=== PATIENT | male | born 1970 | race African-American/Black ===

== ENCOUNTER 2019-03-28 10:54 | Observation (INO) | payer OTHER ==
--- NOTE | 2019-03-28 11:09 | PDOC ---
History of Present Illness - General Chief Complaint: Chest Pain Stated Complaint: CHEST PAIN Time Seen by Provider: 03/28/19 11:08 - History of Present Illness Initial Comments: 03/28/19 11:47 The patient is a 48 year old male with a history of HTN, HLD, Pre-diabetes who presents for evaluation of chest pain. The patient reports onset of sharp left sided chest pain earlier this morning. He noted that the pain has become more dull and radiating sternally with associated shortness of breath prompting his presentation to the ED for further evaluation. He denies similar symptoms in the past and otherwise denies fevers, chills, cough, nausea, vomiting, abdominal pain, or changes with urination or bowel movements. He notes that his symptoms have somewhat improve on presentation to the ED. Past History - Past Medical History Allergies/Adverse Reactions: Allergies Allergy/AdvReac Type Severity Reaction Status Date / Time fish derived [Fish derived] Allergy Mild Verified 03/28/19 11:06 Home Medications: Ambulatory Orders Baclofen 10 mg PO BID 03/28/19 Cholecalciferol (Vitamin D3) [Vitamin D3] 5,000 unit PO WEEKLY 03/28/19 Enalapril Maleate [Vasotec] 20 mg PO DAILY 03/28/19 Meloxicam 15 mg PO BID 03/28/19 Metformin HCl [Glucophage] 500 mg PO BID 03/28/19 Methylprednisolone [Medrol Dose Tad] 1 tablet DAILY 03/28/19 Asthma: No Cardiac Disorders: No COPD: No Diabetes: No GI Disorders: No Disorders: No HTN: Yes Seizures: No - Surgical History Abdominal Surgery: No Appendectomy: Yes (1984 in [place]) Cardiac Surgery: No Cholecystectomy: No Lung Surgery: No Neurologic Surgery: No Orthopedic Surgery: Yes (Fx R hip R knee and R galvin sx at age 13 yrs) - Reproductive History Testicular Surgery: No - Suicide/Smoking/Psychosocial Hx Smoking History: Current every day smoker Have you smoked in the past 12 months: Yes Number of Cigarettes Smoked Daily: 10 Hx Alcohol Use: Yes Drug/Substance Use Hx: Yes Substance Use Type: Alcohol, Cocaine Hx Substance Use Treatment: Yes Review of Systems - Review of Systems Comments:: 03/28/19 11:51 Constitutional: No fevers, chills, fatigue, malaise HEENT: No Rhinorrhea, nasal congestion, visual changes Cardiovascular: Chest pain. No syncope, palpitations, lightheadedness Respiratory: SOB. No Cough, Hemoptysis, Gastrointestinal: No Abdominal pain, Nausea, Vomiting, Constipation, Diarrhea, Melena Genitourinary: No Dysuria, Frequency, Urgency, Hesitancy, Hematuria, Flank pain Musculoskeletal: No Myalgia, arthralgia Skin: No rashes, itching, bruising, pallor Neurologic: No Headache, Dizziness, Numbness, Weakness, or Tingling Psychiatric: No Hallucinations. No SI or HI *Physical Exam - Physical Exam Comments: 03/28/19 11:51 General Appearance: Nourished. No Apparent Distress HEENT: No Pharyngeal Erythema, Tonsillar Exudate, Tonsillar Erythema Neck: No Cervical Lymphadenopathy Respiratory/Chest: Lungs Clear, Normal Breath Sounds. Reproducible tenderness to palpation on exam along the left sternal boarder. No Crackles, Rales, Rhonchi, Wheezing Cardiovascular: Regular Rhythm, Regular Rate. No Murmur, Gallops, Rubs Gastrointestinal/Abdominal: Normal Bowel Sounds, Soft. No Guarding, Rebound, Tenderness Musculoskeletal: No CVA Tenderness Extremity: Normal Capillary Refill Integumentary: Normal Color, Dry, Warm Neurologic: Fully Oriented, Alert, Normal Mood/Affect, Normal Response, ED Treatment Course - LABORATORY CBC & Chemistry Diagram: 03/28/19 11:36 03/28/19 11:36 Medical Decision Making - Medical Decision Making 03/28/19 11:52 The patient is a 48 year old male with a history of HTN, HLD, Pre-diabetes who presents for evaluation of chest pain. Differential includes but is not limited to: ACS, Musculoskeletal, Infectious, Metabolic Derangement. Given the patient's history and physical exam, we will obtain a cbc, cmp, troponin, ekg, chest plain film to evaluate further. We will treat with tylenol and continue to monitor and reassess while here in the ED. 03/28/19 16:50 CBc, cmp, troponin are unremarkable. Chest plain film does not demonstrate any acute pathology. Given the patient's cardiac risk factors and lack of a prior cardiac work up, we believe he requires admission for further monitoring and management. We discussed the case with the admitting team who accepted the patient for admission. *DC/Admit/Observation/Transfer Diagnosis at time of Disposition: Chest pain Qualifiers: Chest pain type: unspecified Qualified Code(s): R07.9 - Chest pain, unspecified - Discharge Dispostion Condition at time of disposition: Improved Decision to Admit order: Yes - Referrals - Patient Instructions - Post Discharge Activity
[2019-03-28] MEDS ORDERED: ACETAMINOPHEN 1000 MG/100 ML VIAL (NON FORMULARY) IVPB ONE (11:32)
--- NOTE | 2019-03-28 11:38 | PDOC ---
Attending Attestation - Resident Resident Name: PrernaChun - ED Attending Attestation I have performed the following: I have examined & evaluated the patient, The case was reviewed & discussed with the resident, I agree w/resident's findings & plan, Exceptions are as noted Heart Score/ECG Review - ECG Impressions Comment:: EKG read 11:03- NSR 77 bpm, no acute ST/T changes. +LVH.
[2019-03-28 11:52] LABS: BASO % 0.9 % (0-2.0); EOS % 1.3 % (0-4.5); HEMATOCRIT 41.4 % (35.4-49); HEMOGLOBIN 13.9 GM/dL (11.7-16.9); LYMPH % 31.2 % (8-40); MCH 31.5 pg (25.7-33.7); MCHC 33.5 g/dl (32.0-35.9); MEAN PLT VOLUME 7.3 fl (7.5-11.1); MONO % 5.9 % (3.8-10.2); NEUT % 60.7 % (42.8-82.8); PLATELET COUNT 372 K/MM3 (134-434); RDW 14.3 % (11.9-15.9); WHITE BLOOD COUNT 12.8 K/mm3 (4.0-10.0)
[2019-03-28] MEDS ORDERED: ACETAMINOPHEN INJECTION 100 ML IVPB ONE (11:53)
[2019-03-28] MEDS ORDERED: SODIUM CHLORIDE 1,000 ML IV STA (12:14)
[2019-03-28 12:19] LABS: ALBUMIN 3.9 g/dl (3.4-5.0); BILIRUBIN,TOTAL 0.3 mg/dL (0.2-1); BLOOD UREA NITROGEN 10.7 mg/dL (7-18); CALCIUM 9.3 mg/dL (8.5-10.1); CREATININE 0.9 mg/dL (0.55-1.3); TOT PROT 7.7 g/dl (6.4-8.2)
[2019-03-28] MEDS ORDERED: ASPIRIN 81 MG CHEWABLE TABLETS PO ONE (13:53)
[2019-03-28] MEDS ORDERED: ASPIRIN 81 MG CHEWABLE TABLETS ONE (14:16)
[2019-03-28] MEDS ORDERED: NITROGLYCERIN SUBLINGUAL 1/150 0.4 MG TAB SL PRN (15:09)
--- NOTE | 2019-03-28 15:28 | HP ---
CHIEF COMPLAINT:chest pain PCP: Dr. Kennedy HISTORY OF PRESENT ILLNESS: 48 yo M PMH of HTN, HLD, Pre-diabetes presented to ED with chest pain. pt works at [employer] and had EKG there and was advised to come to ED here. Pt describes this chest pain as sharp L sided chest pain 9/10 in severity. pt states this chest pain lasted around 30-45 minutes. pt was working when pain started. pt states that when he was laying down for the EKG he felt the pain was worse. pt stated that the pain radiated to mid sternal region and felt more dull. Pt states he has felt similar chest pain in the past but it never persisted for more than a few minutes. Pt states that many years ago he had a stress test for similar chest pain but cant remember the results. pt also endorses lightheadedness. pt denies n/v/d, pt denies SOB. Pt currently has no acute complaints and states that his chest pain has resolved. ER course was notable for: (1)Aspirin (2)EKG: NSR. no ST changes (3) Recent Travel:denies PAST MEDICAL HISTORY: HLD, HTN, Pre-DM PAST SURGICAL HISTORY: Social History: Smokin pack year Alcohol:denies Drugs: denies Family History: Mother -DM, Father HTN, Sister - HTN and DM, Brother of intracranial aneurysm Allergies fish derived [Fish derived] Allergy (Mild, Verified 03/28/19 11:06) HOME MEDICATIONS: Home Medications Medication Instructions Recorded Quetiapine Fumarate [Seroquel -] 50 mg PO BID #60 tablet 09/21/11 Citalopram Hydrobromide [Celexa] 20 mg PO DAILY #0 tablet 10/07/11 Amlodipine Besylate [Norvasc -] 10 mg PO DAILY 03/28/19 Metformin HCl [Glucophage] 500 mg PO DAILY 03/28/19 REVIEW OF SYSTEMS CONSTITUTIONAL: Absent: fever, chills, diaphoresis, generalized weakness, malaise, loss of appetite, weight change HEENT: Absent: rhinorrhea, nasal congestion, throat pain, throat swelling, difficulty swallowing, mouth swelling, ear pain, eye pain, visual changes CARDIOVASCULAR: Present: Chest pain, lightheadedness Absent: syncope, palpitations, irregular heart rate, peripheral edema RESPIRATORY: Absent: cough, shortness of breath, dyspnea with exertion, orthopnea, wheezing, stridor, hemoptysis GASTROINTESTINAL: Absent: abdominal pain, abdominal distension, nausea, vomiting, diarrhea, constipation, melena, hematochezia GENITOURINARY: Absent: dysuria, frequency, urgency, hesitancy, hematuria, flank pain, genital pain MUSCULOSKELETAL: Absent: myalgia, arthralgia, joint swelling, back pain, neck pain SKIN: Absent: rash, itching, pallor HEMATOLOGIC/IMMUNOLOGIC: Absent: easy bleeding, easy bruising, lymphadenopathy, frequent infections ENDOCRINE: Absent: unexplained weight gain, unexplained weight loss, heat intolerance, cold intolerance PHYSICAL EXAMINATION Vital Signs - 24 hr 03/28/19 11:06 Temperature 97.7 F Pulse Rate 80 Respiratory 18 Rate Blood Pressure 131/84 O2 Sat by Pulse 98 Oximetry (%) GENERAL: Awake, alert, and fully oriented, in no acute distress. HEAD: Normal with no signs of trauma. LUNGS: Breath sounds equal, clear to auscultation bilaterally. No wheezes, and no crackles. No accessory muscle use. HEART: Regular rate and rhythm, normal S1 and S2 without murmur, rub or gallop. ABDOMEN: Soft, nontender, not distended, normoactive bowel sounds, no guarding, no rebound, no masses. MUSCULOSKELETAL: Normal range of motion at all joints. No bony deformities or tenderness. No CVA tenderness. UPPER EXTREMITIES: 2+ pulses, warm, well-perfused. No cyanosis. No clubbing. No peripheral edema. LOWER EXTREMITIES: 2+ pulses, warm, well-perfused. No calf tenderness. No peripheral edema. SKIN: Warm, dry, normal turgor, no rashes or lesions noted, normal capillary refill. Laboratory Results - last 24 hr 03/28/19 03/28/19 03/28/19 11:36 11:36 11:36 WBC 12.8 H RBC 4.40 Hgb 13.9 Hct 41.4 MCV 94.0 MCH 31.5 MCHC 33.5 RDW 14.3 Plt Count 372 MPV 7.3 L Absolute Neuts (auto) 7.7 Neutrophils % 60.7 Lymphocytes % 31.2 Monocytes % 5.9 Eosinophils % 1.3 Basophils % 0.9 Nucleated RBC % 0 Sodium 140 Potassium 4.0 Chloride 107 Carbon Dioxide 27 Anion Gap 6 L BUN 10.7 Creatinine 0.9 Est GFR (CKD-EPI)AfAm 115.02 Est GFR (CKD-EPI)NonAf 99.24 Random Glucose 78 Calcium 9.3 Total Bilirubin 0.3 AST 17 ALT 45 Alkaline Phosphatase 54 Creatine Kinase 299 Creatine Kinase Index 0.5 CK-MB (CK-2) 1.5 Troponin I < 0.02 Total Protein 7.7 Albumin 3.9 ASSESSMENT/PLAN: 48 yo M PMH HTN, HLD, Pre-diabetes presented to ED with sharp chest pain and lightheadness. Admitted to tele obs with plans for stress testing to r/o ACS Chest Pain -r/o ACS -EKG: NSR, no ST changes, will rpt EKG -Troponin I negative x1, will trend troponins -received Asa in ED, pt states CP resolved -pt should have echo stress in am to r/o ischemic events. pt to be NPO after midnight -Nitroglycerin prn HTN -well controlled -pt on enalopril 20 at home -c/w home meds Pre-Diabetes -will order A1C -BGM, ISS -pt taking Metformin 500 bid at home HLD -awaiting lipid panel DVT ppx: Lovenox Dispo: tele obs Visit type - Emergency Visit Emergency Visit: Yes ED Registration Date: 03/28/19 Care time: The patient presented to the Emergency Department on the above date and was hospitalized for further evaluation of their emergent condition. - New Patient This patient is new to me today: Yes Date on this admission: 03/28/19 - Critical Care Critical Care patient: No ATTENDING PHYSICIAN STATEMENT I saw and evaluated the patient. I reviewed the resident's note and discussed the case with the resident. I agree with the resident's findings and plan as documented. SUBJECTIVE: OBJECTIVE: ASSESSMENT AND PLAN:
--- NOTE | 2019-03-28 15:37 | CON.CARD ---
Consult Consult Specialty:: Cardiology Referred by:: Hospitalist Medicine Reason for Consultation:: Chest pain - History of Present Illness Chief Complaint: Chest pain History of Present Illness: CHIEF COMPLAINT:chest pain PCP: Dr. Kennedy HISTORY OF PRESENT ILLNESS: 48 yo M PMH of HTN, HLD, Pre-diabetes presented to ED with non-exertional sharp left-sided radiating to retrosternal chest pain worse supine and improved sitting up resolving after IV Tylenol w/o associated dyspnea, palpitations, near or true syncope, orthopnea, PND or LE edema, fevers , chills, rashes. Pt states he has felt similar chest pain in the past but it never persisted for more than a few minutes. Recent Travel:denies PAST MEDICAL HISTORY: HLD, HTN, Pre-DM PAST SURGICAL HISTORY: Social History: Smokin pack year Alcohol:denies Drugs: denies Family History: Mother -DM, Father HTN, Sister - HTN and DM, Brother of intracranial aneurysm Allergies fish derived [Fish derived] Allergy (Mild, Verified 03/28/19 11:06) - History Source History Provided By: Patient Limitations to Obtaining History: No Limitations - Past Medical History Cardio/Vascular: Yes: HTN Endocrine: Yes: Diabetes Mellitus - Alcohol/Substance Use Hx Alcohol Use: Yes - Smoking History Smoking history: Current every day smoker Have you smoked in the past 12 months: Yes Aproximately how many cigarettes per day: 10 Home Medications - Allergies Allergies/Adverse Reactions: Allergies Allergy/AdvReac Type Severity Reaction Status Date / Time fish derived [Fish derived] Allergy Mild Verified 03/28/19 11:06 - Home Medications Home Medications: Ambulatory Orders Baclofen 10 mg PO BID 03/28/19 Cholecalciferol (Vitamin D3) [Vitamin D3] 5,000 unit PO WEEKLY 03/28/19 Enalapril Maleate [Vasotec] 20 mg PO 03/28/19 Meloxicam 15 mg PO BID 03/28/19 Metformin HCl [Glucophage] 500 mg PO BID 03/28/19 Methylprednisolone [Medrol Dose Tad] 1 tablet DAILY 03/28/19 Review of Systems - Review of Systems Cardiovascular: reports: Chest Pain Vital Signs: Vital Signs Temperature 97.7 F 03/28/19 11:06 Pulse Rate 80 03/28/19 11:06 Respiratory Rate 18 03/28/19 11:06 Blood Pressure 131/84 03/28/19 11:06 O2 Sat by Pulse Oximetry (%) 98 03/28/19 11:06 Constitutional: Yes: No Distress, Calm Neck: Yes: Supple Respiratory: Yes: Regular, CTA Bilaterally Gastrointestinal: Yes: Normal Bowel Sounds, Soft Cardiovascular: Yes: Regular Rate and Rhythm JVD: No Carotid Bruit: No Heart Sounds: Yes: S1, S2 Edema: No - Other Data Labs, Other Data: CBC, BMP 03/28/19 11:36 03/28/19 11:36 Troponin, BNP 03/28/19 11:36 Troponin I < 0.02 Troponin, BNP 03/28/19 11:36 Troponin I < 0.02 NSR @ 88 LAE, min criteria LVH Imaging - Results Chest X-ray: Report Reviewed (NAD) Problem List - Problems (1) Atypical chest pain Code(s): R07.89 - OTHER CHEST PAIN (2) Hypertensive heart disease Code(s): I11.9 - HYPERTENSIVE HEART DISEASE WITHOUT HEART FAILURE Qualifiers: Heart failure presence: without heart failure Qualified Code(s): I11.9 - Hypertensive heart disease without heart failure Assessment/Plan 1. Atypical chest pain worse supine > sitting r/o pericarditis 2. HTN heart disease 3. Type 2 DM 4. Hyperlipidemia P:1. Ruling out for [place], check ESR, crp, CORNE[place] 2. Echo to assess effusion, ventricular and valve fxn, stress testing unlikely to add additional info given absence of exertional symptoms and clear positional change in sxs 2. Continue Vascotec 10 bid, f/u TSH, lipid panel, Ha1c, NSAIDs as needed 3. Thank you for consultative opportunity
--- NOTE | 2019-03-28 15:50 | PN ---
Teaching Attending Note Name of Resident: Cyndi Weiner ATTENDING PHYSICIAN STATEMENT I saw and evaluated the patient. I reviewed the resident's note and discussed the case with the resident. I agree with the resident's findings and plan as documented. SUBJECTIVE: CP resolved. No cough/sputum/fever/chills. OBJECTIVE: Afebrile, Hemodynamically Stable. Last Vital Signs Temp Pulse Resp BP Pulse Ox 97.7 F 80 18 131/84 98 03/28/19 11:06 03/28/19 11:06 03/28/19 11:06 03/28/19 11:06 03/28/19 11:06 HEENT - Atraumatic, Normocephalic. Heart - S1, S2, RRR Lungs - Clear to auscultation Abdomen - Soft, non-tender. Bowel Sounds normal Extremities - No calf tenderness. No edema. Neuro - AAO x 3. Tone/Power normal all 4 extremities. Laboratory Results - last 24 hr 03/28/19 03/28/19 03/28/19 11:36 11:36 11:36 WBC 12.8 H RBC 4.40 Hgb 13.9 Hct 41.4 MCV 94.0 MCH 31.5 MCHC 33.5 RDW 14.3 Plt Count 372 MPV 7.3 L Absolute Neuts (auto) 7.7 Neutrophils % 60.7 Lymphocytes % 31.2 Monocytes % 5.9 Eosinophils % 1.3 Basophils % 0.9 Nucleated RBC % 0 Sodium 140 Potassium 4.0 Chloride 107 Carbon Dioxide 27 Anion Gap 6 L BUN 10.7 Creatinine 0.9 Est GFR (CKD-EPI)AfAm 115.02 Est GFR (CKD-EPI)NonAf 99.24 Random Glucose 78 Calcium 9.3 Total Bilirubin 0.3 AST 17 ALT 45 Alkaline Phosphatase 54 Creatine Kinase 299 Creatine Kinase Index 0.5 CK-MB (CK-2) 1.5 Troponin I < 0.02 Total Protein 7.7 Albumin 3.9 Current Medications Generic Name Dose Route Start Last Admin Trade Name Freq PRN Reason Stop Dose Admin Aspirin 81 mg 03/29/19 10:00 Asa - PO DAILY [facility] Enoxaparin Sodium 40 mg 03/29/19 10:00 Lovenox - SQ DAILY [facility] Insulin Aspart 0 vial 03/28/19 15:00 Novolog Vial Sliding Scale - SQ Q6H [facility] Protocol Nitroglycerin 0.4 mg 03/28/19 15:09 Nitrostat - SL Q5M PRN FOR CHEST PAIN Home Medications Medication Instructions Recorded Baclofen 10 mg PO BID 03/28/19 Cholecalciferol (Vitamin D3) 5,000 unit PO WEEKLY 03/28/19 [Vitamin D3] Enalapril Maleate [Vasotec] 20 mg PO DAILY 03/28/19 Meloxicam 15 mg PO BID 03/28/19 Metformin HCl [Glucophage] 500 mg PO BID 03/28/19 Methylprednisolone [Medrol Dose 1 tablet DAILY 03/28/19 Tad] ASSESSMENT AND PLAN: 48 year old male with HTN, HLD, "Pre"DM 2 presented to ED with chest pain, 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 Started as sharp on left side and progressed to dull pain, lasting 30-45 minutes with associated lightheadedness, worse on laying flat. No nausea/vomiting/diaphoresis/ palpitations. He reports prior episodes of CP of shorter durations, not related to food intake or activity. 1. Atypical Chest Pain ECG - SR, Rate 77, LVH Troponin neg Admit to Tele, Serial troponin measurements. Echo and Stress Test requested. Received ASA loading in ED, will continue. Nitroglycerin PRN 2. Pre-DM2 versus DM 2 - On metformin at home. Will hold in favor of Novolog sliding scale. A1C requested. 3. HTN - Continue Enalapril 4. HLD - reported but not on meds. Lipid profile in AM. 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 This likely explains his mild leukocytosis. No signs of infection. DVT Px - Lovenox SQ
--- NOTE | 2019-03-28 17:23 | EKG ---
Test Reason : Blood Pressure : / mmHG Vent. Rate : 068 BPM Atrial Rate : 068 BPM P-R Int : 170 ms QRS Dur : 100 ms QT Int : 390 ms P-R-T Axes : -03 026 -01 degrees QTc Int : 414 ms NORMAL SINUS RHYTHM LEFT VENTRICULAR HYPERTROPHY NONSPECIFIC T WAVE ABNORMALITY ABNORMAL ECG WHEN COMPARED WITH ECG OF 28-MAR-2019 10:51, NO SIGNIFICANT CHANGE WAS FOUND Confirmed by JIMMY BOUDREAUX MD ([id number]) on 03/28/2019 5:22:31 PM Referred By: SERAFIN HAWKINS Confirmed By:JIMMY BOUDREAUX MD
--- NOTE | 2019-03-28 17:26 | EKG ---
Test Reason : Blood Pressure : / mmHG Vent. Rate : 077 BPM Atrial Rate : 077 BPM P-R Int : 166 ms QRS Dur : 092 ms QT Int : 374 ms P-R-T Axes : 041 030 021 degrees QTc Int : 423 ms POOR DATA QUALITY, INTERPRETATION MAY BE ADVERSELY AFFECTED NORMAL SINUS RHYTHM POSSIBLE LEFT ATRIAL ENLARGEMENT LEFT VENTRICULAR HYPERTROPHY ABNORMAL ECG NO PREVIOUS ECGS AVAILABLE Confirmed by JIMMY BOUDREAUX MD ([id number]) on 03/28/2019 5:26:11 PM Referred By: Confirmed By:JIMMY BOUDREAUX MD
[2019-03-28] MEDS: INSULIN SLIDING SCALE (NOVOLOG) 1 VIAL SQ SCH ×2 (17:55→23:20)
[2019-03-28 19:54] VITALS: BMI 30.2
[2019-03-29] MEDS: INSULIN SLIDING SCALE (NOVOLOG) 1 VIAL SQ SCH ×2 (06:24→12:25)
[2019-03-29 06:59] LABS: HEMOGLOBIN 12.7 GM/dL (11.7-16.9); MCH 32.2 pg (25.7-33.7); MCHC 34.3 g/dl (32.0-35.9); MEAN PLT VOLUME 7.5 fl (7.5-11.1); PLATELET COUNT 356 K/MM3 (134-434); RBC 3.93 M/mm3 (4.00-5.60); RDW 13.9 % (11.9-15.9); WHITE BLOOD COUNT 10.5 K/mm3 (4.0-10.0)
[2019-03-29 07:13] LABS: BLOOD UREA NITROGEN 12.8 mg/dL (7-18); CALCIUM 8.6 mg/dL (8.5-10.1); CREATININE 0.9 mg/dL (0.55-1.3); MAGNESIUM 2.3 mg/dL (1.8-2.4); POTASSIUM 4.3 mmol/L (3.5-5.1)
[2019-03-29 08:16] LABS: CHOLESTEROL 175 mg/dL (50-200); HDL CHOLESTEROL 39 mg/dL (40-60); TRIGLYCERIDES 110 mg/dL (0-150)
[2019-03-29] MEDS ORDERED: ASPIRIN 81 MG CHEWABLE TABLETS PO SCH (10:00)
[2019-03-29] MEDS ORDERED: ENALAPRIL MALEATE 10 MG TABLET (FP) PO SCH (10:00)
[2019-03-29] MEDS ORDERED: ENOXAPARIN NA (PORCINE) 40 MG/0.4 ML DISP.SYRIN SQ SCH (10:00)
--- NOTE | 2019-03-29 10:43 | PN ---
Progress Note, Physician Chief Complaint: Events noted Not in distress History of Present Illness: Patient was seen and examined. Awake and alert. Chart was reviewed Denies chest pain, SOB or palpitation - Current Medication List Current Medications: Active Medications Aspirin (Asa -) 81 mg PO DAILY [facility] Enalapril Maleate (Vasotec -) 20 mg PO DAILY [facility] Enoxaparin Sodium (Lovenox -) 40 mg SQ DAILY [facility] Insulin Aspart (Novolog Vial Sliding Scale -) 1 vial SQ Q6HPO [facility]; Protocol Last Admin: 03/29/19 06:24 Dose: Not Given Nitroglycerin (Nitrostat -) 0.4 mg SL Q5M PRN PRN Reason: FOR CHEST PAIN - Objective Vital Signs: Vital Signs Temperature 97.6 F 03/29/19 02:36 Pulse Rate 77 03/29/19 02:36 Respiratory Rate 18 03/29/19 02:36 Blood Pressure 139/87 03/29/19 02:36 O2 Sat by Pulse Oximetry (%) 98 03/28/19 23:02 Eyes: Yes: PERRL HENT: Yes: Atraumatic Neck: Yes: Supple Cardiovascular: Yes: Regular Rate and Rhythm, S1, S2 Respiratory: Yes: CTA Bilaterally Gastrointestinal: Yes: Normal Bowel Sounds, Soft. No: Tenderness Edema: No Additional Findings/Remarks: - Review of Systems Constitutional: denies: Chills, Fever Cardiovascular: (+) Chest Pain, denies: Palpitations, Shortness of Breath Respiratory: denies: Cough, Hemoptysis, Orthopnea, PND Gastrointestinal: denies: Abdominal Pain, Constipation, Diarrhea, Melena, Nausea , Rectal Bleeding, Vomiting Musculoskeletal: denies: Back Pain, Joint Pain Neurological: denies: Dizziness, Headache, Seizure, Syncope Labs: CBC, BMP 03/29/19 05:04 03/29/19 05:04 Problem List - Problems (1) Atypical chest pain Code(s): R07.89 - OTHER CHEST PAIN (2) Hypertensive heart disease Code(s): I11.9 - HYPERTENSIVE HEART DISEASE WITHOUT HEART FAILURE Qualifiers: Heart failure presence: without heart failure Qualified Code(s): I11.9 - Hypertensive heart disease without heart failure Assessment/Plan 1. Atypical chest pain - rule out pericarditis 2. HTN 3. Type 2 DM 4. Hyperlipidemia PLAN: 1. Check ESR, CRP, TFT 2. Echocardiography to assess LV/RV and valvular function. Further recommendation to follow. 3. Continue Vascotec 10 mg BID 4. ASA 81 mg QD David Rae MD
--- NOTE | 2019-03-29 10:56 | ECHO ---
Version: 1 Name: ISADORA LAYNE Exam: Adult Echocardiogram Study Date: 03/29/2019, 8:14 AM Age: 48 Years MMode/2D Measurements & Calculations IVSd: 1.12 cm LVIDs: 3.2 cm LVIDd: 4.0 cm LVPWd: 1.57 cm ACS: 2.11 cm LVOT diam: 1.98 cm Doppler Measurements & Calculations MV E max bernard: 65.2 cm/sec Med E/e': 7.1 MV A max bernard: 66.6 cm/sec Med Peak E' Bernard: 9.2 cm/sec MV E/A: 0.98 Lat E/e': 8.7 Lat Peak E' Bernard: 7.5 cm/sec Ao max P.6 mmHg FLO(I,D): 1.79 cm Ao mean P.8 mmHg LV V1 mean: 55.2 cm/sec Ao V2 max: 137.7 cm/sec LV V1 mean P.37 mmHg TR max bernard: 241.6 cm/sec TR max P.4 mmHg Procedure A complete two-dimensional transthoracic echocardiogram was performed (2D, M-mode, Doppler and color flow Doppler). Left Ventricle The left ventricle is normal in size. There is mild asymmetric left ventricular hypertrophy. Ejectio n Fraction = 65%. The transmitral spectral Doppler flow pattern is suggestive of impaired LV relaxatio n. The left ventricular wall motion is normal. Atria Normal left and right atrial size and function. Mitral Valve The mitral valve is grossly normal. There is trace mitral regurgitation. Tricuspid Valve The tricuspid valve is normal in structure and function. There is trace tricuspid regurgitation. Rig ht ventricular systolic pressure is 34 mmhg. Aortic Valve The aortic valve is normal in structure and function. Pulmonic Valve The pulmonic valve is not well seen, but is grossly normal. Great Vessels The aortic root is normal size. Pericardium/Pleura There is no pericardial effusion. There is no pleural effusion. Summary Statements The left ventricle is normal in size. There is mild asymmetric left ventricular hypertrophy. Ejection Fraction = 65%. There is trace mitral regurgitation. There is trace tricuspid regurgitation. Right ventricular systolic pressure is 34 mmhg. MD Jerel Castro 03/29/2019, 9:55 AM Ordering Physician: Дмитрий Munoz Performed By: Mariella Crawford
--- NOTE | 2019-03-29 11:59 | PN ---
Teaching Attending Note Name of Resident: Cyndi Weiner ATTENDING PHYSICIAN STATEMENT I saw and evaluated the patient. I reviewed the resident's note and discussed the case with the resident. I agree with the resident's findings and plan as documented. SUBJECTIVE:asymptomatic. pain has completely resolved. had similar pain in the past and had stress test done 10 years ago which he reports as normal. 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 Started as sharp on left side and progressed to dull pain, lasting 30-45 minutes with associated lightheadedness, worse on laying flat. No nausea/vomiting/diaphoresis/palpitations. He reports prior episodes of CP of shorter durations, not related to food intake or activity. 1. Atypical Chest Pain- trop neg x2. CP now resolved. no events noted on soup person. Echo done awaiting results. can hold off on stress at this time. EKG now showing anything suggestive of pericarditis or ST changes. seen by cardio. on asa. 2. DM- a1c pending. dose take metformin at home. can re-start on discharge pending results of A1c 3. HTN- controlled. cont current medications 4. Dyslipidemia- LDL above goal. will need to start statin therapy. low cholesterol diet 5. DJD of spine- was on medrol dose pack. can f/u wtih PMD for further management 6. d/c home later today pending result of echo
[2019-03-29 14:46] VITALS: BP 160/80; PULSE 70; TEMP 98
[2019-03-29] MEDS ORDERED: ATORVASTATIN CA 40 MG TABLET (FP) PO SCH (22:00)
--- NOTE | 2019-03-30 07:56 | DS ---
Physical Exam: SUBJECTIVE: Patient seen and examined yesterday at bedside as pt was discharged yesterday. pt had no acute complaints. pt denied cp or sob. OBJECTIVE: Vital Signs Period Temp Pulse Resp BP Sys/Mistry Pulse Ox Last 24 Hr 98 F 70 18 160/80 PHYSICAL EXAM GENERAL: The patient is awake, alert, and fully oriented, in no acute distress. LUNGS: Breath sounds equal, clear to auscultation bilaterally, no wheezes, no crackles, no accessory muscle use. HEART: Regular rate and rhythm, S1, S2 without murmur, rub or gallop. ABDOMEN: Soft, nontender, nondistended, normoactive bowel sounds EXTREMITIES: 2+ pulses, warm, well-perfused, no edema. SKIN: Warm, dry, normal turgor, no rashes or lesions noted. LABS CBC, BMP 03/29/19 05:04 03/29/19 05:04 Laboratory Results - last 24 hr 03/29/19 03/29/19 03/29/19 02:00 05:04 12:22 POC Glucometer 107 Hemoglobin A1c % 7.0 H Triglycerides 110 Cholesterol 175 Total LDL Cholesterol 124 H HDL Cholesterol 39 L HOSPITAL COURSE: Date of Admission:03/28/19 48 yo M PMH HTN, HLD, Pre-diabetes presented to ED with sharp chest pain and lightheadness. Admitted to tele obs with plans for stress testing to r/o ACS. In the ED, the EKG showed NSR, no ST changes. The serial troponins were negative. the pt recieved asa and states the chest pain resolved. the pt states that the pain lasted 30-45 min. pt has had similar cp in the past but with shorter duration. the pt had echo testing during hospital course showing EF 65% and trace mitral and tricuspid regurgitation. Throughout the hospital course, pt had no acute events on tele monitor. Lab results show dyslipidepia. pt initiated on statins and counseled on diet and exercise. the pt should f/u with pcp to check liver enzymes in 6 weeks and repeat lipid panel. pt A1c is 7%. pt should c/w home metformin and f/u with pcp. HTN was well controlled. pt should c /w home medication and f/u outpt. Date of Discharge: 03/30/19 Minutes to complete discharge: 36 Discharge Summary Reason For Visit: CHEST PAIN Condition: Improved - Instructions Diet, Activity, Other Instructions: You came into the hospital with pain in your chest and lightheadedness. You were treated with medications to help your chest pain. Your blood work shows that you have high cholesterol. You had an Echo of your heart which shows normal heart function. There is some dysfunction with your heart valves. You should continue to follow up with your branch specialist as an outpatient. Medications: -Please continue taking Enalapril 20 mg daily -Please continue taking Aspirin 81 daily -Please take Atorvastatin 40 mg daily Please continue your home medications as prescribed. Please be careful while taking Meloxicam and Aspirin. This increases your risk of bleeding. If you experience excessive bleeding or injuries, please return to the ER. Please follow up with your branch specialist, Dr. Rae, to manage your heart condition. Please follow up with your primary care physician, Dr. Kennedy, to manage your health and monitor your improvement and monitor your blood work for your cholesterol. Your physician will need to check your liver enzymes in 6 weeks. Please continue to follow a low sodium/ low fat diet. You should continue to diet along with exercise. Please stop smoking as this may lead to many health problems including but not limited to your heart and lungs. Please return to the ER if you have any signs or symptoms of chest pain, shortness of breath, uncontrollable fever, chills, nausea, vomiting, numbness, tingling, or weakness in any part of your body, changes in vision, or slurred speech. Please return to the ER if symptoms persist, worsen, or new symptoms arise. Referrals: Diego Kennedy MD [Primary Care Provider] - David Rae MD [Staff Physician] - Disposition: HOME - Home Medications Comprehensive Discharge Medication List: Ambulatory Orders Baclofen 10 mg PO BID 03/28/19 Cholecalciferol (Vitamin D3) [Vitamin D3] 5,000 unit PO WEEKLY 03/28/19 Enalapril Maleate [Vasotec] 20 mg PO DAILY 03/28/19 Meloxicam 15 mg PO BID 03/28/19 Metformin HCl [Glucophage] 500 mg PO BID 03/28/19 Aspirin [ASA -] 81 mg PO DAILY #30 tab.chew 03/29/19 Atorvastatin Ca [Lipitor] 40 mg PO HS #30 tablet 03/29/19 This patient is new to me today: No Emergency Visit: No Critical Care patient: No - Discharge Referral Referred to [facility] Med [facility] Yes Physician Referral: Diego Conway MD ([facility]) ATTENDING PHYSICIAN STATEMENT I saw and evaluated the patient. I reviewed the resident's note and discussed the case with the resident. I agree with the resident's findings and plan as documented. SUBJECTIVE: OBJECTIVE: ASSESSMENT AND PLAN:
== END 2019-03-29 14:48 | disposition home or self-care (01) ==
LOC: JER 10:54 → JERBED 14:09 → J4W 19:35
PROVIDERS: ATTEND Internal Medicine
PROC: 3E033NZ Introduction of Analgesics, Hypnotics, Sedatives into Peripheral Vein, Percutaneous Approach (ICD-10-PCS; principal; 2019-03-28)
PROC: 3E0337Z Introduction of Electrolytic and Water Balance Substance into Peripheral Vein, Percutaneous Approach (ICD-10-PCS; 2019-03-28)
DX: R07.89 Other chest pain (principal); I11.9 Hypertensive heart disease without heart failure; E78.5 Hyperlipidemia, unspecified; R73.03 Prediabetes; F17.210 Nicotine dependence, cigarettes, uncomplicated; Z91.013 Allergy to seafood; Z79.84 Long term (current) use of oral hypoglycemic drugs
CPT/HCPCS: 36415; 71045-TC-FY; 80048; 80053; 80061; 82550; 82553; 82962; 83036; 83721; 83735; 84100; 84484; 85025; 85027; 93005; 93010; 93306-TC; 99285-25; G0378; J0131; J7030

== ENCOUNTER 2019-05-26 06:21 | Inpatient (IN) | payer OTHER ==
[2019-05-24 10:52] VITALS: BMI 28.2
[2019-05-26] MEDS ORDERED: CEFAZOLIN 2 GM in DEXTROSE 5%-WATER - 100 ML IVPB ONE (07:06)
[2019-05-26] MEDS ORDERED: ROCURONIUM BROMIDE 50 MG/5 ML SYRINGE ONE ×3 (07:08→11:38)
[2019-05-26] MEDS ORDERED: LIDOCAINE HCL/PF 2% SDV 5ML VIAL ONE (07:08)
[2019-05-26] MEDS ORDERED: MIDAZOLAM HCL 2 MG/2 ML SINGLE DOSE VIAL ONE (07:08)
[2019-05-26] MEDS ORDERED: PROPOFOL 20 ML ONE ×2 (07:08→10:52)
[2019-05-26] MEDS ORDERED: fentaNYL CITRATE 250 MCG/5 ML VIAL ONE (07:08)
[2019-05-26] MEDS ORDERED: GENTAMICIN SO4 80 MG/2 ML VIAL ONE (07:16)
[2019-05-26] MEDS ORDERED: LIDOCAINE 1%-EPI 1:100,000 30 ML MDV IJ ONE ×3 (07:16→11:16)
[2019-05-26 07:18] LABS: EOS % 1.7 % (0-4.5); HEMATOCRIT 39.7 % (35.4-49); HEMOGLOBIN 13.6 GM/dL (11.7-16.9); LYMPH % 37.4 % (8-40); MCHC 34.3 g/dl (32.0-35.9); MEAN CELL VOLUME 93.3 fl (80-96); MEAN PLT VOLUME 7.6 fl (7.5-11.1); MONO % 5.8 % (3.8-10.2); NEUT % 54.1 % (42.8-82.8); PLATELET COUNT 357 K/MM3 (134-434); RBC 4.26 M/mm3 (4.00-5.60); RDW 14.6 % (11.9-15.9); WHITE BLOOD COUNT 13.8 K/mm3 (4.0-10.0)
[2019-05-26] MEDS ORDERED: BUPIVACAINE HCL/PF 0.5% (5 MG/ML) 30 ML VIAL IJ ONE ×3 (07:18→11:57)
[2019-05-26] MEDS ORDERED: THROMBIN (BOVINE) 5,000 UNIT VIAL TP ONE ×4 (07:18→10:58)
[2019-05-26] MEDS ORDERED: ceFAZolin SODIUM 1 GM VIAL ONE ×2 (07:23→17:53)
[2019-05-26] MEDS ORDERED: VANCOMYCIN 1,000 MG VIAL (RESTRICTED TO ID ONLY) ONE (08:03)
[2019-05-26] MEDS ORDERED: VANCOMYCIN 1,000 MG VIAL (RESTRICTED TO ID ONLY) IVPB ONE (08:05)
[2019-05-26] MEDS ORDERED: ceFAZolin SODIUM 1 GM VIAL IVPB ONE (08:40)
[2019-05-26] MEDS ORDERED: LIDOCAINE 1%/EPI 1:100000 (20 ML MULTI DOSE VIAL) IJ ONE ×2 (08:51)
[2019-05-26] MEDS ORDERED: THROMBIN (BOVINE) 20,000 UNIT VIAL TP ONE (08:56)
[2019-05-26] MEDS ORDERED: BACITRACIN 50,000 UNITS VIAL NR ONE (09:05)
[2019-05-26] MEDS ORDERED: GENTAMICIN SO4 80 MG/2 ML VIAL IVPB ONE (09:05)
[2019-05-26] MEDS ORDERED: BACITRACIN 15 GM TUBE TOPICAL OINTMENT ONE (09:21)
[2019-05-26] MEDS ORDERED: EPHEDRINE SULFATE/0.9% NACL/PF 50 MG/10 ML SYRINGE NR ONE (09:25)
[2019-05-26] MEDS ORDERED: GLYCOPYRROLATE 0.2 MG/1 ML VIAL ONE ×2 (09:35→12:21)
[2019-05-26] MEDS ORDERED: BUPIVACAINE LIPOSOME/PF (EXPAREL) 266 MG/20 ML VIAL ONE (11:50)
[2019-05-26] MEDS ORDERED: BUPIVACAINE LIPOSOME/PF (EXPAREL) 266 MG/20 ML VIAL NR ONE (11:56)
[2019-05-26] MEDS ORDERED: NEOSTIGMINE METHYLSULFATE 0.5 MG/1 ML - 10 ML MDV ONE (12:21)
--- NOTE | 2019-05-26 13:04 | HP ---
History & Physical Update - History History: No Change - Physical Physical: No Change - Assessment Assessment: No Change - Plan Plan: No Change
--- NOTE | 2019-05-26 13:07 | OP ---
Operative Note - Note: Operative Date: 05/26/19 Pre-Operative Diagnosis: Cervical spodylosis with UE radiculopathy Operation: C4/5 Corpectomies; [employer]; Reconstruction w/ Peek Cage & Anterior plating. C3-C6 Laminectomies, [employer] of [employer] w/ Lateral Mass Instrumentation Post-Operative Diagnosis: Same as Pre-op Surgeon: Sky Gay [employer] Hand: Lupillo Dewey Anesthesiologist/BLASTING CLAY MINER: Max Vasques Anesthesia: General Estimated Blood Loss (mls): 40 Drains & Tubes with Location: Anterior UDAY & Posterior UDAY Drains, Volume Out (mls): 400 (Montero) Fluid Volume Replaced (mls): 2,000 Operative Report Dictated: Yes
[2019-05-26] MEDS ORDERED: ONDANSETRON 4 MG/2 ML VIAL IVPUSH PRN ×2 (13:08→13:58)
[2019-05-26] MEDS ORDERED: morphine CARPU-JECT 4 MG/1 ML DISP.SYRIN IVPUSH PRN (13:08)
[2019-05-26] MEDS ORDERED: diphenhydrAMINE HCL 25 MG CAPSULE (FP) PO PRN (13:08)
[2019-05-26] MEDS ORDERED: oxyCODONE HCL 5 MG TABLET PO PRN ×2 (13:08)
[2019-05-26] MEDS ORDERED: LACTATED RINGERS SOLUTION 1,000 ML/1,000 ML INFUS.BAG IV SCH (13:15)
[2019-05-26] MEDS ORDERED: ACETAMINOPHEN 1000 MG/100 ML VIAL (NON FORMULARY) IVPB ONE (13:59)
[2019-05-26] MEDS: LACTATED RINGERS SOLUTION 1,000 ML IV SCH (14:25)
[2019-05-26] MEDS: HYDROmorphone *PCA* 10MG/50ML DISP.SYRIN PCA SCH (14:25)
[2019-05-26] MEDS ORDERED: HYDROmorphone *PCA* 10MG/50ML DISP.SYRIN ONE (15:11)
[2019-05-26] MEDS ORDERED: ACETAMINOPHEN INJECTION 100 ML IVPB ONE (16:33)
[2019-05-26] MEDS: DOCUSATE SODIUM 100 MG CAPSULE (FP) PO SCH ×2 (17:50→22:28)
[2019-05-26] MEDS ORDERED: DEXTROSE 5%-WATER - 50 ML IVPB ONE (17:53)
[2019-05-26] MEDS: CEFAZOLIN 1 GM in DEXTROSE 5%-WATER - 50 ML IVPB SCH (17:56)
[2019-05-26] MEDS ORDERED: CEFAZOLIN 1 GM/D5W 1 GM/50 ML BAG IVPB SCH (18:00)
--- NOTE | 2019-05-26 22:52 | HP ---
CHIEF COMPLAINT: back pain PCP: Dr. Kennedy HISTORY OF PRESENT ILLNESS: Patient is a 48 year old male with past medical history of HTN, HLD and pre- diabetes, presented due to persistent pain and weakness of lower back, as well as dorsal surface of RUE for about 3 months that occurred suddenly after a fall. Recently, patient has also been reporting difficulty with ambulation and imbalance. An MRI of the cervical, thoracic and lumbar done which demonstrated degenerative kyphosis and spondylosis. Patient was referred to neurosurgery for cervical spondylosis and UE radiculopathy, and opted for surgery. Today, patient underwent C4/5 Corpectomies; Holiness of Lordosis; Reconstruction w/ Peek Cage & Anterior plating. C3-C6 Laminectomies, [employer] of [employer]osis w/ Lateral Mass Instrumentation. Post-operatively, patient reports sore throat, but otherwise denies headache, dizziness, chest pain, SOB, abdominal pain, diarrhea. Denies any numbness or weakness of the extremities. Recent Travel:denies PAST MEDICAL HISTORY: HTN HLD pre-DM PAST SURGICAL HISTORY: Right hip and knee surgery Social History: Smokin ppd >20y Alcohol: Drugs: Family history: Mother -DM Father HTN Sister - HTN and DM Brother of intracranial aneurysm Allergies fish derived [Fish derived] Allergy (Mild, Verified 05/26/19 07:19) No Known Drug Allergies Allergy (Verified 05/26/19 07:19) HOME MEDICATIONS: Home Medications Medication Instructions Recorded Baclofen 10 mg PO PRN 03/28/19 Cholecalciferol (Vitamin D3) 5,000 unit PO WEEKLY 03/28/19 [Vitamin D3] Metformin HCl [Glucophage] 500 mg PO BID 03/28/19 Amlodipine Besylate [Norvasc -] 10 mg PO DAILY 05/24/19 REVIEW OF SYSTEMS CONSTITUTIONAL: Absent: fever, chills, diaphoresis, generalized weakness, malaise, loss of appetite, weight change HEENT: Absent: rhinorrhea, nasal congestion, throat pain, throat swelling, difficulty swallowing, mouth swelling, ear pain, eye pain, visual changes CARDIOVASCULAR: Absent: chest pain, syncope, palpitations, irregular heart rate, lightheadedness , peripheral edema RESPIRATORY: Absent: cough, shortness of breath, dyspnea with exertion, orthopnea, wheezing, stridor, hemoptysis GASTROINTESTINAL: Absent: abdominal pain, abdominal distension, nausea, vomiting, diarrhea, constipation, melena, hematochezia GENITOURINARY: Absent: dysuria, frequency, urgency, hesitancy, hematuria, flank pain, genital pain MUSCULOSKELETAL: Absent: myalgia, arthralgia, joint swelling, back pain, neck pain SKIN: Absent: rash, itching, pallor HEMATOLOGIC/IMMUNOLOGIC: Absent: easy bleeding, easy bruising, lymphadenopathy, frequent infections ENDOCRINE: Absent: unexplained weight gain, unexplained weight loss, heat intolerance, cold intolerance NEUROLOGIC: Absent: headache, focal weakness or paresthesias, dizziness, unsteady gait, seizure, mental status changes, bladder or bowel incontinence PSYCHIATRIC: Absent: anxiety, depression, suicidal or homicidal ideation, hallucinations. PHYSICAL EXAMINATION Vital Signs - 24 hr 05/26/19 05/26/19 05/26/19 07:10 07:14 07:15 Temperature 97.9 F 97.9 F Pulse Rate 80 80 Respiratory 20 20 Rate Blood Pressure 150/92 150/92 O2 Sat by Pulse 100 Oximetry (%) 05/26/19 05/26/19 05/26/19 13:09 13:15 13:30 Temperature 98.6 F Pulse Rate 94 H 89 90 Respiratory 20 17 15 Rate Blood Pressure 147/83 143/94 156/100 O2 Sat by Pulse 100 97 100 Oximetry (%) 05/26/19 05/26/19 05/26/19 13:45 14:00 14:15 Temperature Pulse Rate 89 100 H 91 H Respiratory 15 14 17 Rate Blood Pressure 152/94 153/93 146/89 O2 Sat by Pulse 100 100 100 Oximetry (%) 05/26/19 05/26/19 05/26/19 14:25 14:30 14:45 Temperature Pulse Rate 91 H 92 H 96 H Respiratory 17 17 18 Rate Blood Pressure 146/89 157/91 158/86 O2 Sat by Pulse 100 100 100 Oximetry (%) 05/26/19 05/26/19 05/26/19 15:00 15:15 15:45 Temperature Pulse Rate 96 H 96 H 90 Respiratory 16 13 13 Rate Blood Pressure 149/82 151/88 138/84 O2 Sat by Pulse 100 100 99 Oximetry (%) 05/26/19 05/26/19 05/26/19 16:00 16:15 16:30 Temperature 97.7 F Pulse Rate 83 93 H 93 H Respiratory 13 14 13 Rate Blood Pressure 133/95 144/85 152/97 O2 Sat by Pulse 99 100 100 Oximetry (%) 05/26/19 05/26/19 05/26/19 16:55 17:08 17:18 Temperature 98 F 98 F Pulse Rate 94 H 94 H 94 H Respiratory 18 20 20 Rate Blood Pressure 126/83 126/83 126/83 O2 Sat by Pulse 100 100 Oximetry (%) 05/26/19 17:55 Temperature Pulse Rate 88 Respiratory 18 Rate Blood Pressure 130/80 O2 Sat by Pulse 100 Oximetry (%) GENERAL: Awake, alert, and fully oriented, in no acute distress. EYES: PERRLA, EOMI, sclera anicteric, conjunctiva clear. EARS, NOSE, THROAT: Moist mucous membranes. No lesions in the oropharynx. NECK: Cervical collar in place, dressing clean dry and intact LUNGS: Breath sounds equal, clear to auscultation bilaterally. HEART: Regular rate and rhythm, normal S1 and S2 without murmur, rub or gallop. ABDOMEN: Soft, nontender, not distended, normoactive bowel sounds. MUSCULOSKELETAL: Normal range of motion at all joints. UPPER EXTREMITIES: 2+ pulses, warm, well-perfused. No peripheral edema. LOWER EXTREMITIES: 2+ pulses, warm, well-perfused. No peripheral edema. NEUROLOGICAL: Cranial nerves II-XII grossly intact. Motor strength 5/5 on all extremities, sensation intact, patellar reflexes +2. Normal speech. PSYCHIATRIC: Cooperative. Good eye contact. Appropriate mood and affect. SKIN: Warm, dry, normal turgor. Laboratory Results - last 24 hr 05/26/19 05/26/19 05/26/19 06:32 06:32 07:32 WBC 13.8 H RBC 4.26 Hgb 13.6 Hct 39.7 MCV 93.3 MCH 32.0 MCHC 34.3 RDW 14.6 Plt Count 357 MPV 7.6 Absolute Neuts (auto) 7.5 Neutrophils % 54.1 Lymphocytes % 37.4 Monocytes % 5.8 Eosinophils % 1.7 Basophils % 1.0 Nucleated RBC % 0 POC Glucometer 102 Blood Type A POSITIVE Antibody Screen Negative 05/26/19 07:48 WBC RBC Hgb Hct MCV MCH MCHC RDW Plt Count MPV Absolute Neuts (auto) Neutrophils % Lymphocytes % Monocytes % Eosinophils % Basophils % Nucleated RBC % POC Glucometer Blood Type A POSITIVE Antibody Screen ASSESSMENT/PLAN: Patient is a 48 year old male with past medical history of HTN, HLD and pre- diabetes, presented due to persistent pain and weakness of lower back, as well as dorsal surface of RUE for about 3 months that occurred suddenly after a fall. #Cervical spondylosis -POD 1: C4/5 Corpectomies; Holiness of Lordosis; Reconstruction w/ Peek Cage & Anterior plating. C3-C6 Laminectomies, [employer] of [employer]osis w/ Lateral Mass Instrumentation -Neurosurgery (Dr. Gay) on board -Pain control with Dilaudid ROCKET ENGINE COMPONENT MECHANIC pump -Anterior and Posterior UDAY drains in place, monitor output -Discontinue brown upon ambulation -Cervical collar -Physical therapy -Incentive spirometry -Neuro checks -NPO for now, advance as per surgery #HTN -Continue Amlodipine 10mg daily #Pre-DM -Insulin sliding scale -BGM ACHS -Hold Metformin #FEN -IV LR @75cc/hr -BMP monitoring -NPO #Prophylaxis -Heparin 5000u sq tid -SCDs #Disposition -full code -admit to med surg Visit type - Emergency Visit Emergency Visit: Yes ED Registration Date: 05/26/19 Care time: The patient presented to the Emergency Department on the above date and was hospitalized for further evaluation of their emergent condition. - New Patient This patient is new to me today: Yes Date on this admission: 05/27/19 - Critical Care Critical Care patient: No ATTENDING PHYSICIAN STATEMENT I saw and evaluated the patient. I reviewed the resident's note and discussed the case with the resident. I agree with the resident's findings and plan as documented. SUBJECTIVE: OBJECTIVE: ASSESSMENT AND PLAN:
[2019-05-27] MEDS ORDERED: NICOTINE 21 MG/24 HOURS TOPICAL PATCH TD PRN (00:15)
[2019-05-27] MEDS ORDERED: NICOTINE 21 MG/24 HOURS TOPICAL PATCH TD SCH (00:30)
[2019-05-27] MEDS ORDERED: ceFAZolin SODIUM 1 GM VIAL ONE ×2 (02:01→09:06)
[2019-05-27] MEDS ORDERED: DEXTROSE 5%-WATER - 50 ML IVPB ONE ×2 (02:01→09:06)
[2019-05-27] MEDS: CEFAZOLIN 1 GM in DEXTROSE 5%-WATER - 50 ML IVPB SCH ×2 (02:02→10:53)
--- NOTE | 2019-05-27 02:13 | PN ---
Teaching Attending Note Name of Resident: Citlaly Sellers ATTENDING PHYSICIAN STATEMENT I saw and evaluated the patient. I reviewed the resident's note and discussed the case with the resident. I agree with the resident's findings and plan as documented. SUBJECTIVE: 48 year old male with past medical history of HTN, HLD and pre-diabetes, s/p C4 /5 Corpectomies; [employer] of Lordosis; Reconstruction w/ Peek Cage & Anterior plating. C3-C6 Laminectomies, [employer] of [employer]osis w/ Lateral Mass Instrumentation performed 05/26. Drain in place in surgical site, puttin out about 100cc of blood discharge through 2 UDAY tubes since procedure. Patient reports his pain is under control on Dilaudid HEAD FILTER PRESS TENDER. He was fully awake, not in distress. Maintain NPO for now, incentive spirometry, pain control avoid heparin or antiplatelet agents. Montitor UDAY drain output. BALTA to follow up.
[2019-05-27] MEDS: DOCUSATE SODIUM 100 MG CAPSULE (FP) PO SCH ×3 (06:29→21:49)
[2019-05-27 06:41] LABS: HEMATOCRIT 35.5 % (35.4-49); MCH 31.5 pg (25.7-33.7); MCHC 33.9 g/dl (32.0-35.9); MEAN CELL VOLUME 92.9 fl (80-96); MEAN PLT VOLUME 7.3 fl (7.5-11.1); PLATELET COUNT 315 K/MM3 (134-434); RBC 3.82 M/mm3 (4.00-5.60); RDW 14.7 % (11.9-15.9); WHITE BLOOD COUNT 21.6 K/mm3 (4.0-10.0)
[2019-05-27 07:31] LABS: BLOOD UREA NITROGEN 9.7 mg/dL (7-18); CALCIUM 8.4 mg/dL (8.5-10.1); CREATININE 0.7 mg/dL (0.55-1.3); MAGNESIUM 1.9 mg/dL (1.8-2.4); PHOSPHOROUS 3.2 mg/dL (2.5-4.9); POTASSIUM 3.6 mmol/L (3.5-5.1)
--- NOTE | 2019-05-27 08:11 | PN ---
Progress Note (short form) - Note Progress Note: POD #1 s/p C4/5 Corpectomies; Scientologist of Lordosis; Reconstruction w/ Peek Cage & Anterior plating. C3-C6 Laminectomies, [employer]ologist of Lordosis w/ Lateral Mass Instrumentation. Alert. Sitting in bed hith HOB at 30 degrees. Wearing his c-collar as instructed. C/o incisional tenderness. Adequate pain control via PERSONAL CARE HOME ADMINISTRATOR. States he' s been able to sit-up with legs hanging over edge of bed but RNs wont allow him to get up and ambulate. Prior to surgery states he had UE weakness/numbness which by his own admission has now resolved. Denies n/v/f/c, CP, palpitations, SOB, GALLARDO, cough, GONZALEZ or photophobia. Last Vital Signs Temp Pulse Resp BP Pulse Ox 98.1 F 83 20 152/94 100 05/27/19 06:50 05/27/19 06:50 05/27/19 06:50 05/27/19 06:50 05/27/19 06:25 CBC, BMP 05/27/19 06:00 05/27/19 06:00 24hr Output 05/26/19 05/27/19 05/27/19 05/27/19 22:59 06:49 06:52 07:45 Anterior UDAY 55 Posterior UDAY 40 Brown 700 350 350 PE Gen: A&O. NAD Pulm: CTA bilat in all guajardo Cor: RRR Neck: C-collar. Ant dressing c/d/i. UDAY serosang. Post dressing c/d/i. UDAY serosang. 5/5 clinical practice consultant strength b/l UE. b/l LE compartments soft, supple and non-tender with +DP pulses. +dorsi/plantar flexion. SCDs bilat. : brown to gravity clear Problem List - Problems (1) Cervical spondylosis with radiculopathy Assessment/Plan: s/p C4/5 Corpectomies; [employer]ologist of Lordosis; Reconstruction w/ Peek Cage & Anterior plating. C3-C6 Laminectomies, [employer]ologist of [employer]osis w/ Lateral Mass Instrumentation. dc brown and begin TOV Will switch to PO pain management after Anasthesia stops PERSONAL CARE HOME ADMINISTRATOR OOB and ambulate with PT Incentive spirometer Trend UDAY outputs Wear your c-collar 23/24hrs/day as instructed Clear liquid diet and advance as tolerated. Code(s): M47.22 - OTHER SPONDYLOSIS WITH RADICULOPATHY, CERVICAL REGION (2) HTN (hypertension) Code(s): I10 - ESSENTIAL (PRIMARY) HYPERTENSION (3) HLD (hyperlipidemia) Assessment/Plan: BP controlled well Code(s): E78.5 - HYPERLIPIDEMIA, UNSPECIFIED (4) Pre-diabetes Assessment/Plan: Tight glycemic control Code(s): R73.03 - PREDIABETES
[2019-05-27] MEDS ORDERED: NAPH,MB-DB/K PH,MBDB POWDER PACKET PO ONE (10:00)
[2019-05-27] MEDS ORDERED: HEPARIN NA (PORCINE) 5,000 UNITS/ML 1ML VIAL SQ SCH (10:00)
[2019-05-27] MEDS: FOLIC ACID 1 MG TABLET (FP) PO SCH (10:53)
[2019-05-27] MEDS: amLODIPine BESYLATE 10 MG TABLET (FP) PO SCH (10:53)
[2019-05-27] MEDS: NICOTINE 21 MG/24 HOURS TOPICAL PATCH TD SCH (10:53)
[2019-05-27 11:10] LABS: BASO % 0.4 % (0-2.0); EOS % 0.1 % (0-4.5); HEMATOCRIT 37.1 % (35.4-49); HEMOGLOBIN 12.5 GM/dL (11.7-16.9); LYMPH % 14.3 % (8-40); MCH 31.4 pg (25.7-33.7); MCHC 33.6 g/dl (32.0-35.9); MEAN CELL VOLUME 93.6 fl (80-96); MEAN PLT VOLUME 7.7 fl (7.5-11.1); MONO % 7.6 % (3.8-10.2); NEUT % 77.6 % (42.8-82.8); PLATELET COUNT 345 K/MM3 (134-434); RBC 3.97 M/mm3 (4.00-5.60); RDW 14.4 % (11.9-15.9); WHITE BLOOD COUNT 21.9 K/mm3 (4.0-10.0)
[2019-05-27] MEDS: INSULIN SLIDING SCALE (NOVOLOG) 1 VIAL SQ SCH ×3 (11:45→21:49)
[2019-05-27 12:37] LABS: ANISOCYTOSIS 0; MACROCYTOSIS 0; PLATELET ESTIMATE NORMAL
--- NOTE | 2019-05-27 12:50 | PN ---
Teaching Attending Note Name of Resident: Alicia Nguyễn ATTENDING PHYSICIAN STATEMENT I saw and evaluated the patient. I reviewed the resident's note and discussed the case with the resident. I agree with the resident's findings and plan as documented. SUBJECTIVE: no fever or chills. No GONZALEZ. has sore throat but swallowing good. No SOB . neck pain, no weakness or numbness OBJECTIVE: NAD HEENT: surgical clean dresing on anterior and posterior neck with surrounding edema. UDAY drains, with bloody liquid. oropharynx with slightly bruised mucosa. No edema in uvula CV: RRR, 2/6 SM At apex . Lungs: CATB ext : No edema Neuro: strength 5/5 in upper and lower extremities proximally and distally, sensation to light touch nl. reflexes 2+ knee jerk, 1+ biceps, 2+ BR b/l . 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 passed gas 2- H/o HTN: cont norvasc 3- Heart murmur: f/u with echo as out pt DVT PX: SCDs pending heparin if safe by sx
[2019-05-27] MEDS: LACTATED RINGERS SOLUTION 1,000 ML IV SCH (14:12)
[2019-05-27] MEDS: HEPARIN NA (PORCINE) 5,000 UNITS/ML 1ML VIAL SQ SCH ×2 (14:12→21:49)
--- NOTE | 2019-05-27 14:31 | PN ---
Progress Note (short form) - Note Progress Note: Anesthesia POD#1 S/P C4-6 decompression,fusion and Laminectomy under GA and BULK PIGMENT REDUCER VSS,no N/V,pain is still a lot despite of using Dilaudid BULK PIGMENT REDUCER. No other complications seen. A/P Continue the BULK PIGMENT REDUCER. Some Ibuprofen either PO or IV cad be added if Surgeon agrees. Rachel Oneill MD.
--- NOTE | 2019-05-27 15:05 | PN ---
Physical Exam: SUBJECTIVE: Patient seen and examined at the bedside. States his throat was bothering him and he is still having trouble swallowing but it is improving. OBJECTIVE: Vital Signs Period Temp Pulse Resp BP Sys/Mistry Pulse Ox Last 24 Hr 97.7 F-98.1 F 72-96 13-20 126-152/79-97 98-100 GENERAL: The patient is awake, alert, and fully oriented, in no acute distress. HEAD: Normal with no signs of trauma. EYES: PERRL, extraocular movements intact, sclera anicteric, conjunctiva clear. No ptosis. ENT: Ears normal, nares patent, oropharynx clear without exudates, moist mucous membranes. NECK: C-collar in place; ant/post dressings c/d/i slight edema in neck LUNGS: Breath sounds equal, clear to auscultation bilaterally, no wheezes, no crackles, no accessory muscle use. HEART: Regular rate and rhythm, S1, S2 without murmur, rub or gallop. ABDOMEN: Soft, nontender, nondistended, normoactive bowel sounds, no guarding, no rebound, no hepatosplenomegaly, no masses. EXTREMITIES: 2+ pulses, warm, well-perfused, no edema. NEUROLOGICAL: Cranial nerves II through XII grossly intact.B/L UE 5/5 strength sensation intact throughout; B/L LE 5/5 strength sensation intact throughout PSYCH: Normal mood, normal affect. SKIN: Warm, dry, normal turgor, no rashes or lesions noted Laboratory Results - last 24 hr 05/27/19 05/27/19 05/27/19 06:00 06:00 06:55 WBC 21.6 H RBC 3.82 L Hgb 12.0 Hct 35.5 MCV 92.9 MCH 31.5 MCHC 33.9 RDW 14.7 Plt Count 315 MPV 7.3 L Absolute Neuts (auto) Neutrophils % Neutrophils % (Manual) Band Neutrophils % Lymphocytes % Lymphocytes % (Manual) Monocytes % Monocytes % (Manual) Eosinophils % Eosinophils % (Manual) Basophils % Basophils % (Manual) Myelocytes % (Man) Promyelocytes % (Man) Blast Cells % (Manual) Nucleated RBC % Metamyelocytes Hypochromia Platelet Estimate Polychromasia Poikilocytosis Anisocytosis Microcytosis Macrocytosis Sodium 134 L Potassium 3.6 Chloride 100 Carbon Dioxide 27 Anion Gap 8 BUN 9.7 Creatinine 0.7 Est GFR (CKD-EPI)AfAm 127.53 Est GFR (CKD-EPI)NonAf 110.04 POC Glucometer 118 Random Glucose 120 H Calcium 8.4 L Phosphorus 3.2 Magnesium 1.9 05/27/19 05/27/19 10:45 11:41 WBC 21.9 H RBC 3.97 L Hgb 12.5 Hct 37.1 MCV 93.6 MCH 31.4 MCHC 33.6 RDW 14.4 Plt Count 345 MPV 7.7 Absolute Neuts (auto) 17.0 H Neutrophils % 77.6 D Neutrophils % (Manual) 66.3 Band Neutrophils % 3.2 Lymphocytes % 14.3 D Lymphocytes % (Manual) 18.9 Monocytes % 7.6 Monocytes % (Manual) 12 H Eosinophils % 0.1 D Eosinophils % (Manual) 0.0 Basophils % 0.4 Basophils % (Manual) 0.0 Myelocytes % (Man) 0 Promyelocytes % (Man) 0 Blast Cells % (Manual) 0 Nucleated RBC % 0 Metamyelocytes 0 Hypochromia 0 Platelet Estimate Normal Polychromasia 0 Poikilocytosis 0 Anisocytosis 0 Microcytosis 0 Macrocytosis 0 Sodium Potassium Chloride Carbon Dioxide Anion Gap BUN Creatinine Est GFR (CKD-EPI)AfAm Est GFR (CKD-EPI)NonAf POC Glucometer 129 Random Glucose Calcium Phosphorus Magnesium Active Medications Generic Name Dose Route Start Last Admin Trade Name Freq PRN Reason Stop Dose Admin Amlodipine Besylate 10 mg 05/27/19 10:00 05/27/19 10:53 Norvasc - PO 10 mg DAILY CHIP Administration Diphenhydramine HCl 25 mg 05/26/19 13:08 Benadryl - PO Q6H PRN FOR ITCHING Docusate Sodium 100 mg 05/26/19 14:00 05/27/19 14:13 Colace - PO 100 mg TID CHIP Administration Fentanyl 50 mcg 05/26/19 13:58 05/26/19 13:15 Sublimaze Injection - IVPUSH 50 mcg [id number] PRN Administration PAIN-PACU ORDER X 4 DOSES ONLY Folic Acid 1 mg 05/27/19 10:00 05/27/19 10:53 Folic Acid - PO 1 mg DAILY CHIP Administration Heparin Sodium (Porcine) 5,000 unit 05/27/19 14:00 05/27/19 14:12 Heparin - SQ 5,000 unit TID CHIP Administration Hydromorphone HCl 10 mg 05/26/19 14:15 05/26/19 14:25 Hydromorphone 10 Mg/50 Ml-Ns SCIENTIFIC PHOTOGRAPHER 06/02/19 14:09 10 mg SCIENTIFIC PHOTOGRAPHER CHIP Administration Protocol Lactated Ringer's 1,000 mls @ 75 mls/hr 05/26/19 14:00 05/27/19 14:12 Lactated Ringers Solution IV 75 mls/hr ASDIR CHIP Administration Cefazolin Sodium 1 gm/ 50 mls @ 100 mls/hr 05/26/19 18:00 05/27/19 10:53 Dextrose IVPB 05/27/19 17:59 100 mls/hr Q8H-IV CHIP Administration Insulin Aspart 1 vial 05/27/19 07:00 05/27/19 11:45 Novolog Vial Sliding Scale - SQ Not Given ACHS CHIP Protocol Nicotine 21 mg 05/27/19 10:00 05/27/19 10:53 Nicoderm Patch - TD 21 mg DAILY CHIP Administration Ondansetron HCl 4 mg 05/26/19 13:58 Zofran Injection IVPUSH Q6H PRN NAUSEA AND/OR VOMITING Senna/Docusate Sodium 2 tablet 05/27/19 22:00 Pericolace - PO 05/28/19 12:50 HS [facility] ASSESSMENT/PLAN: Patient is a 48 year old male with past medical history of HTN, HLD and pre- diabetes, presented due to persistent pain and weakness of lower back, as well as dorsal surface of RUE for about 3 months that occurred suddenly after a fall. #Cervical spondylosis -POD 1: C4/5 Corpectomies; Rastafari of Lordosis; Reconstruction w/ Peek Cage & Anterior plating. C3-C6 Laminectomies, Rastafari of Lordosis w/ Lateral Mass Instrumentation -Neurosurgery (Dr. Gay) on board -Pain control with Dilaudid SCIENTIFIC PHOTOGRAPHER pump -Anterior and Posterior UDAY drains in place, monitor output (bloody today) -Cervical collar -Physical therapy -Incentive spirometry -Neuro checks -continue clears, advance diet as tolerated. - bowel regimen, patient passed gas #HTN -Continue norvasc #Pre-DM -Insulin sliding scale -BGM ACHS -Hold Metformin #FEN -IV LR @75cc/hr -BMP monitoring -NPO #Prophylaxis -Heparin 5000u sq tid -SCDs #Disposition -full code Visit type - Emergency Visit Emergency Visit: No - New Patient This patient is new to me today: Yes Date on this admission: 05/29/19 - Critical Care Critical Care patient: No - Discharge Referral Referred to [facility] Med [facility] No ATTENDING PHYSICIAN STATEMENT I saw and evaluated the patient. I reviewed the resident's note and discussed the case with the resident. I agree with the resident's findings and plan as documented. SUBJECTIVE: OBJECTIVE: ASSESSMENT AND PLAN:
[2019-05-27] MEDS: HYDROmorphone *PCA* 10MG/50ML DISP.SYRIN PCA SCH (15:48)
[2019-05-27] MEDS ORDERED: SENNOSIDES/DOCUSATE COMBO (SENNA PLUS) TABLET (UD) PO SCH (22:00)
[2019-05-28] MEDS: HYDROmorphone *PCA* 10MG/50ML DISP.SYRIN PCA SCH ×2 (00:56→17:44)
[2019-05-28] MEDS: DOCUSATE SODIUM 100 MG CAPSULE (FP) PO SCH ×3 (06:24→21:43)
[2019-05-28] MEDS: HEPARIN NA (PORCINE) 5,000 UNITS/ML 1ML VIAL SQ SCH ×4 (06:24→21:42)
[2019-05-28 06:45] LABS: HEMATOCRIT 35.1 % (35.4-49); MCH 31.8 pg (25.7-33.7); MCHC 34.1 g/dl (32.0-35.9); MEAN PLT VOLUME 7.8 fl (7.5-11.1); PLATELET COUNT 306 K/MM3 (134-434); RBC 3.77 M/mm3 (4.00-5.60); RDW 14.2 % (11.9-15.9)
[2019-05-28 07:00] LABS: BLOOD UREA NITROGEN 8.8 mg/dL (7-18); CALCIUM 8.5 mg/dL (8.5-10.1); CREATININE 0.7 mg/dL (0.55-1.3); POTASSIUM 3.7 mmol/L (3.5-5.1)
--- NOTE | 2019-05-28 07:37 | PN ---
Physical Exam: SUBJECTIVE: Patient seen and examined at bedside- no acute events overnight patient states he is still having some throat pain and difficulty swallwoing however his pain is better; EYE SPECIALIST overnight- 19 pushes; denies any CP/SOB/N/V OBJECTIVE: Vital Signs Period Temp Pulse Resp BP Sys/Mistry Pulse Ox Last 24 Hr 98.0 F-99.5 F 71-109 18-24 130-163/62-103 98-98 GENERAL: The patient is awake, alert, and fully oriented, in no acute distress. EYES: PEERLA: EOMI: no scleral icterus. NECK: C-collar in place; ant/post dressings c/d/i slight edema in neck LUNGS: CTA B/L; no rales, rhonchi or wheezing HEART: Regular rate and rhythm, S1, S2 without murmur, rub or gallop. ABDOMEN: soft; NT/ND +BS in all 4 quadrants EXTREMITIES: 2+ pulses, warm, well-perfused, no edema. NEUROLOGICAL: Cranial nerves II through XII grossly intact.B/L UE 5/5 strength sensation intact throughout; B/L LE 5/5 strength sensation intact throughout PSYCH: Normal mood, normal affect. SKIN: Warm, dry, normal turgor, no rashes or lesions noted Laboratory Results - last 24 hr 05/27/19 05/27/19 05/27/19 10:45 11:41 17:24 WBC 21.9 H RBC 3.97 L Hgb 12.5 Hct 37.1 MCV 93.6 MCH 31.4 MCHC 33.6 RDW 14.4 Plt Count 345 MPV 7.7 Absolute Neuts (auto) 17.0 H Neutrophils % 77.6 D Neutrophils % (Manual) 66.3 Band Neutrophils % 3.2 Lymphocytes % 14.3 D Lymphocytes % (Manual) 18.9 Monocytes % 7.6 Monocytes % (Manual) 12 H Eosinophils % 0.1 D Eosinophils % (Manual) 0.0 Basophils % 0.4 Basophils % (Manual) 0.0 Myelocytes % (Man) 0 Promyelocytes % (Man) 0 Blast Cells % (Manual) 0 Nucleated RBC % 0 Metamyelocytes 0 Hypochromia 0 Platelet Estimate Normal Polychromasia 0 Poikilocytosis 0 Anisocytosis 0 Microcytosis 0 Macrocytosis 0 Sodium Potassium Chloride Carbon Dioxide Anion Gap BUN Creatinine Est GFR (CKD-EPI)AfAm Est GFR (CKD-EPI)NonAf POC Glucometer 129 146 Random Glucose Calcium 05/27/19 05/28/19 05/28/19 20:46 05:30 05:57 WBC RBC Hgb Hct MCV MCH MCHC RDW Plt Count MPV Absolute Neuts (auto) Neutrophils % Neutrophils % (Manual) Band Neutrophils % Lymphocytes % Lymphocytes % (Manual) Monocytes % Monocytes % (Manual) Eosinophils % Eosinophils % (Manual) Basophils % Basophils % (Manual) Myelocytes % (Man) Promyelocytes % (Man) Blast Cells % (Manual) Nucleated RBC % Metamyelocytes Hypochromia Platelet Estimate Polychromasia Poikilocytosis Anisocytosis Microcytosis Macrocytosis Sodium 133 L Potassium 3.7 Chloride 97 L Carbon Dioxide 27 Anion Gap 9 BUN 8.8 Creatinine 0.7 Est GFR (CKD-EPI)AfAm 127.53 Est GFR (CKD-EPI)NonAf 110.04 POC Glucometer 144 139 Random Glucose 127 H Calcium 8.5 Active Medications Generic Name Dose Route Start Last Admin Trade Name Freq PRN Reason Stop Dose Admin Amlodipine Besylate 10 mg 05/27/19 10:00 05/27/19 10:53 Norvasc - PO 10 mg DAILY CIHP Administration Diphenhydramine HCl 25 mg 05/26/19 13:08 Benadryl - PO Q6H PRN FOR ITCHING Docusate Sodium 100 mg 05/26/19 14:00 05/28/19 06:24 Colace - PO 100 mg TID CHIP Administration Fentanyl 50 mcg 05/26/19 13:58 05/26/19 13:15 Sublimaze Injection - IVPUSH 50 mcg [id number] PRN Administration PAIN-PACU ORDER X 4 DOSES ONLY Folic Acid 1 mg 05/27/19 10:00 05/27/19 10:53 Folic Acid - PO 1 mg DAILY CHIP Administration Heparin Sodium (Porcine) 5,000 unit 05/27/19 14:00 05/28/19 06:50 Heparin - SQ Not Given TID CHIP Hydromorphone HCl 10 mg 05/26/19 14:15 05/28/19 00:56 Hydromorphone 10 Mg/50 Ml-Ns EYE SPECIALIST 06/02/19 14:09 10 mg EYE SPECIALIST CHIP Administration Protocol Lactated Ringer's 1,000 mls @ 75 mls/hr 05/26/19 14:00 05/27/19 14:12 Lactated Ringers Solution IV 75 mls/hr ASDIR CHIP Administration Insulin Aspart 1 vial 05/27/19 07:00 05/27/19 21:49 Novolog Vial Sliding Scale - SQ Not Given ACHS CHIP Protocol Nicotine 21 mg 05/27/19 10:00 05/27/19 10:53 Nicoderm Patch - TD 21 mg DAILY CHIP Administration Ondansetron HCl 4 mg 05/26/19 13:58 Zofran Injection IVPUSH Q6H PRN NAUSEA AND/OR VOMITING Senna/Docusate Sodium 2 tablet 05/27/19 22:00 05/27/19 21:49 Pericolace - PO 05/28/19 12:50 2 tablet HS CHIP Administration ASSESSMENT/PLAN: Patient is a 48 year old male with past medical history of HTN, HLD and pre- diabetes, presented due to persistent pain and weakness of lower back, as well as dorsal surface of RUE for about 3 months that occurred suddenly after a fall. #Cervical spondylosis -POD 2: C4/5 Corpectomies; Holiness of Lordosis; Reconstruction w/ Peek Cage & Anterior plating. C3-C6 Laminectomies, Holiness of Lordosis w/ Lateral Mass Instrumentation -Neurosurgery (Dr. Gay) on board -currently on EYE SPECIALIST pump; will try and switch to oral pain meds -PT -will adance diet to regular diet; currently on clears -incentive spirometer -heparin sq dvt ppx -bowel regimen #HTN -Continue Amlodipine 10mg daily #Pre-DM -Insulin sliding scale -BGM ACHS -Hold Metformin #FEN -IV LR @75cc/hr -BMP monitoring -clears Problem List - Problems (1) Cervical spondylosis with radiculopathy Code(s): M47.22 - OTHER SPONDYLOSIS WITH RADICULOPATHY, CERVICAL REGION (2) HLD (hyperlipidemia) Code(s): E78.5 - HYPERLIPIDEMIA, UNSPECIFIED (3) HTN (hypertension) Code(s): I10 - ESSENTIAL (PRIMARY) HYPERTENSION (4) Pre-diabetes Code(s): R73.03 - PREDIABETES Visit type - Emergency Visit Emergency Visit: Yes ED Registration Date: 05/26/19 Care time: The patient presented to the Emergency Department on the above date and was hospitalized for further evaluation of their emergent condition. - New Patient This patient is new to me today: No - Critical Care Critical Care patient: No ATTENDING PHYSICIAN STATEMENT I saw and evaluated the patient. I reviewed the resident's note and discussed the case with the resident. I agree with the resident's findings and plan as documented. SUBJECTIVE: OBJECTIVE: ASSESSMENT AND PLAN:
[2019-05-28] MEDS: NAPH,MB-DB/K PH,MBDB POWDER PACKET PO ONE ×2 (11:02)
[2019-05-28] MEDS: INSULIN SLIDING SCALE (NOVOLOG) 1 VIAL SQ SCH ×4 (11:02→21:42)
[2019-05-28] MEDS: NICOTINE 21 MG/24 HOURS TOPICAL PATCH TD SCH (11:04)
[2019-05-28] MEDS: FOLIC ACID 1 MG TABLET (FP) PO SCH (11:04)
[2019-05-28] MEDS: amLODIPine BESYLATE 10 MG TABLET (FP) PO SCH (11:04)
[2019-05-28] MEDS: LACTATED RINGERS SOLUTION 1,000 ML IV SCH ×2 (11:05→17:45)
--- NOTE | 2019-05-28 11:24 | PN ---
Progress Note (short form) - Note Progress Note: ID consult dictated imp/reccd asked to see for leukocytosis-present postop day #1 (yesterday) no fevers brown out and voiding +flatulence c/o throat pain POD #2 s/p C4/5 Corpectomies; Sabianist of Lordosis; Reconstruction w/ Peek Cage & Anterior plating. C3-C6 Laminectomies, Sabianist of Lordosis w/ Lateral Mass Instrumentation received vancomycin and cefazolin intraop and then cefazolin for 24 hours, no steroids drains were removed yesterday by surgery and the surgical dressings are clean and dry he has neck swelling would suggest cxray r/o aspiration blood cultures UA surgical f/u- please speak to neurosurgeon HTN NIDDM thanks d/w Dr Nguyễn Problem List - Problems (1) Leukocytosis Code(s): D72.829 - ELEVATED WHITE BLOOD CELL COUNT, UNSPECIFIED (2) S/P laminectomy Code(s): Z98.890 - OTHER SPECIFIED POSTPROCEDURAL STATES (3) HLD (hyperlipidemia) Code(s): E78.5 - HYPERLIPIDEMIA, UNSPECIFIED (4) HTN (hypertension) Code(s): I10 - ESSENTIAL (PRIMARY) HYPERTENSION
--- NOTE | 2019-05-28 13:03 | PN ---
Teaching Attending Note Name of Resident: Alicia Nguyễn ATTENDING PHYSICIAN STATEMENT I saw and evaluated the patient. I reviewed the resident's note and discussed the case with the resident. I agree with the resident's findings and plan as documented. SUBJECTIVE: No fever or chills. No GONZALEZ . has pain in neck with no radiation. denies numbness , weakness, or tingling. no dysuria, no diarrhea. has sore throat but swallowing his liquids with no trouble or cough OBJECTIVE: NAD. a little drowsy. HEENT: surgical clean dressing on anterior and posterior neck with neck edema especially on R side. oropharynx with slightly bruised mucosa. No edema in uvula CV: RRR, 2/6 SM At apex . Lungs: CATB Ext : No edema Neuro: strength 5/5 in upper and lower extremities proximally and distally, sensation to light touch nl. reflexes 2+ knee jerk, 1+ biceps, 2+ BR b/l . ASSESSMENT AND PLAN: 48 y/o man with h/o HTN, HLD and pre-diabetes, who presented for C spine sx 1- POD 2 after C4-5 corpectomies and instrumentation: - cont CALL CENTER MANAGER only intermittent pushes ( by mistake continuous was given last night ) - cont liquid diet - leukocytosis is unexplained . did not receive steroids, no urinary sx , no cough or SOB, or CP. - ID consult . follow UA, and cxray - bowel regimen. - will d/w surgeon 2- H/o HTN: cont norvasc 3- Heart murmur: f/u with echo as out pt DVT PX: SCDs , heaprin SQ
[2019-05-28] MEDS: BENZOCAINE/MENTH/CETYLPYRD CL 1 EACH LOZENGE MM PRN (13:20)
[2019-05-28 14:22] LABS: EPI CELLS 0.2 /HPF (0-5/HPF); HYALINE CASTS 0 /lpf (0-8); URINE APPEARANCE CLEAR; URINE BACTERIA 1.4 /hpf (NEGATIVE); URINE BILIRUBIN NEGATIVE (NEGATIVE); URINE COLOR YELLOW; URINE GLUCOSE (UA) 1+ (NEGATIVE); URINE KETONE 1+ (NEGATIVE); URINE LEUK ESTERASE NEGATIVE (NEGATIVE); URINE NITRITE NEGATIVE (NEGATIVE); URINE PROTEIN NEGATIVE (NEGATIVE); URINE RBC 3 /hpf (0-4); URINE UROBILINOGEN 0.2 mg/dL (0.2-1.0); URINE WBC 0 /hpf (0-5)
--- NOTE | 2019-05-28 17:16 | PN ---
Progress Note (short form) - Note Progress Note: Anesthesia OWNER round, POD#2 S/P C4-6 decompression,fusion and Laminectomy under GA and OWNER.Reports pain 6-10. VSS. Sore throat and neck. Unable to swallow pills. continue OWNER. Will assess tomorrow .
--- NOTE | 2019-05-28 17:43 | PN ---
Progress Note (short form) - Note Progress Note: Patient stable. Pain reasonably well controlled. Still using SEMICONDUCTOR MANUFACTURING TECHNICIAN. Mild dysphagia consistent with surgery persists. Agree with advancing diet and encouraging ambulation. Patient with asymptomatic Leukocytosis. ID evaluation appreciated. Most likely not associated with infection at surgical sites. Agree with fever workup. Patient clear for discharge when pain controlled and all are in agreement that his elevated WBC is resolving without apparent infection.
--- NOTE | 2019-05-28 17:54 | CONS ---
DATE OF CONSULTATION: DATE OF DICTATION: 05/28/2019 INFECTIOUS DISEASE CONSULTATION REQUESTED BY: The hospitalist service. HISTORY OF PRESENT ILLNESS: This is a 48-year-old man with a past medical history of diabetes, hyperlipidemia and hypertension. He is still a smoker. He underwent surgery on May 26. He was admitted for surgery. He had a C4-C5 corpectomy, sikhism of lordosis, reconstruction with PEEK cage and anterior plating. He had C3 through C6 laminectomies and lateral mass instrumentation. He received vancomycin and cefazolin intraoperatively, and then was on cefazolin for 24 hours. No steroids were used. I am asked to see him for postoperative leukocytosis. He is presently postop day number 2. He has been having leukocytosis since immediately postop day 1. He has no fevers. He notes neck swelling, which has been since his postop care. His Montero is out and he is voiding, and he is having flatulence. He is drinking clear liquids, and complains of throat pain. Drains were removed yesterday by Surgery and the surgical dressings were clean and dry. PAST MEDICAL HISTORY: Notable for [id number] diabetes, hyperlipidemia, hypertension. PAST SURGICAL HISTORY: Notable for appendectomy, and hip and knee surgery. SOCIAL HISTORY: He is a smoker. There is no history of alcohol or substance use. FAMILY HISTORY: Notable for diabetes and pancreatic cancer in his mother. Brother of an intracranial aneurysm, and his sister and father have hypertension. ALLERGIES: FISH PRODUCTS. He has no known drug allergies. MEDICATIONS: His medications at home include baclofen, vitamin D, metformin, amlodipine. REVIEW OF SYSTEMS: He notes some pain and neck discomfort, but he denies any fever or chills. PHYSICAL EXAMINATION: General: He is awake and alert. Vital Signs: He is afebrile; temperature is 98.3. Pulse of 94, blood pressure 126/95, respiratory rate 18. He is saturating 95%. HEENT: He is normocephalic. His eyes are anicteric. He is able to open his mouth. There is no pharyngitis noted. Neck: Edematous. He has 2 dressings on it, one on the anterior and one on the posterior neck. They are both clean and dry. He has neck particularly on the right side. Heart: Regular rate and rhythm. He has a soft systolic murmur, 1/6. Lungs: Diminished breath sounds at the bases. Extremities: He has no edema or phlebitis. DIAGNOSTIC STUDIES: Labs are notable for a white count of 22 (he was 21.6 postoperatively); hemoglobin is 12; platelets are 306. BUN 8 and creatinine 0.7. SUMMARY: This is postop day number 2 for this 48-year-old man status post cervical neck surgery, with leukocytosis. He has no fever. He received vancomycin and cefazolin intraoperatively and then cefazolin for 24 hours. I would suggest a chest x-ray to rule out aspiration pneumonia. I would obtain blood cultures and a UA. I would recommend surgical followup, to please speak with Neurosurgery regarding what their normal postoperative course is long. We will hold onto antibiotics at this time. The surgical dressings are clean and dry, and the dressing changes are being done by Surgery. Further recommendations to follow. The case was discussed with the hospitalist service. ELOY SANDOVAL M.D. [id number]
[2019-05-28] MEDS ORDERED: ACETAMINOPHEN 325 MG TABLET (FP) PO PRN (18:39)
[2019-05-29] MEDS: DOCUSATE SODIUM 100 MG CAPSULE (FP) PO SCH ×3 (06:14→21:58)
[2019-05-29] MEDS: HEPARIN NA (PORCINE) 5,000 UNITS/ML 1ML VIAL SQ SCH ×3 (06:14→21:58)
[2019-05-29] MEDS: INSULIN SLIDING SCALE (NOVOLOG) 1 VIAL SQ SCH ×4 (06:14→22:01)
[2019-05-29 07:34] LABS: HEMATOCRIT 35.5 % (35.4-49); HEMOGLOBIN 12.1 GM/dL (11.7-16.9); MCH 31.3 pg (25.7-33.7); MCHC 33.9 g/dl (32.0-35.9); MEAN CELL VOLUME 92.3 fl (80-96); MEAN PLT VOLUME 7.9 fl (7.5-11.1); PLATELET COUNT 330 K/MM3 (134-434); RBC 3.85 M/mm3 (4.00-5.60); RDW 14.4 % (11.9-15.9)
[2019-05-29 08:06] LABS: BLOOD UREA NITROGEN 11.3 mg/dL (7-18); CALCIUM 8.9 mg/dL (8.5-10.1); CREATININE 0.7 mg/dL (0.55-1.3); MAGNESIUM 2.3 mg/dL (1.8-2.4); POTASSIUM 3.6 mmol/L (3.5-5.1)
--- NOTE | 2019-05-29 08:53 | PN ---
Progress Note (short form) - Note Progress Note: Anesthesia/Pain Pt seen and examined S:Alert and awake comfortable O: Vital Signs Temperature 99.8 F H 05/29/19 05:00 Pulse Rate 73 05/29/19 05:00 Respiratory Rate 22 H 05/29/19 05:00 Blood Pressure 141/94 05/29/19 05:00 O2 Sat by Pulse Oximetry (%) 95 05/28/19 21:00 CBC, BMP 05/29/19 06:15 05/29/19 06:15 A/P: Current Active Problems Cervical spondylosis with radiculopathy (Acute) HLD (hyperlipidemia) (Acute) HTN (hypertension) (Acute) Pre-diabetes (Acute) s/p s/p C4-5 C3-6 decompression fusion Doing well post op Continue STRAW BOSS Prosper Tarango MD
--- NOTE | 2019-05-29 09:03 | PN ---
Progress Note (short form) - Note Progress Note: alert using incentive spirometry clinically looks better opening his mouth more easily NS note reviewed- Vital Signs Period Temp Pulse Resp BP Sys/Mistry Pulse Ox Last 24 Hr 99.5 F-100.9 F 73-94 18-24 126-180/82-95 95-95 less neck swelling dressings intact cor-rrr llungs decresed bs at bases abd soft,nt ext no edema no phlebitis neck incisions clean and dry no erythema, no drainage CBC, BMP 05/29/19 06:15 05/29/19 06:15 Microbiology 05/28/19 12:07 Blood - Peripheral Venous Blood Culture - Preliminary Pending Organism Laboratory Tests 05/28/19 13:58 Urine Nitrite Negative Urine Bilirubin Negative Urine Urobilinogen 0.2 Ur Leukocyte Esterase Negative Urine WBC (Auto) 0 cxray-atelectasis a/p low grade fevers leukocytosis +blood culture- suspect contaminant but given elevated wbc and low grade fever- stat repeat blood cultures and vancomycin clinically looks better POD #3 s/p C4/5 Corpectomies; Jew of Lordosis; Reconstruction w/ Peek Cage & Anterior plating. C3-C6 Laminectomies, Jew of Lordosis w/ Lateral Mass Instrumentation surgical f/u noted HTN NIDDM d/w hospitalist
[2019-05-29] MEDS: NICOTINE 21 MG/24 HOURS TOPICAL PATCH TD SCH (09:25)
[2019-05-29] MEDS: amLODIPine BESYLATE 10 MG TABLET (FP) PO SCH (09:25)
[2019-05-29] MEDS: BENZOCAINE/MENTH/CETYLPYRD CL 1 EACH LOZENGE MM PRN (09:25)
[2019-05-29] MEDS: FOLIC ACID 1 MG TABLET (FP) PO SCH (09:25)
[2019-05-29] MEDS: VANCOMYCIN 1 GRAM (PRE-DOCKED) 1,000 MG/250 ML BAG IVPB SCH ×2 (12:01→23:35)
--- NOTE | 2019-05-29 13:58 | PN ---
Progress Note (short form) - Note Progress Note: Subjective: no fever or chills. No GONZALEZ , minimal sore throat. no weakness. neck pain is better Objective: Vital Signs: Last Vital Signs Temp Pulse Resp BP Pulse Ox 98.9 F 96 H 18 140/90 95 05/29/19 09:22 05/29/19 09:22 05/29/19 09:22 05/29/19 09:22 05/28/19 21:00 Laboratory Results - last 24 hr 05/28/19 05/28/19 05/29/19 13:58 20:54 06:15 WBC 21.0 H RBC 3.85 L Hgb 12.1 Hct 35.5 MCV 92.3 MCH 31.3 MCHC 33.9 RDW 14.4 Plt Count 330 MPV 7.9 Sodium Potassium Chloride Carbon Dioxide Anion Gap BUN Creatinine Est GFR (CKD-EPI)AfAm Est GFR (CKD-EPI)NonAf POC Glucometer 125 Random Glucose Calcium Magnesium Urine Color Yellow Urine Appearance Clear Urine pH 7.0 Ur Specific [place] 1.012 Urine Protein Negative Urine Glucose (UA) 1+ H Urine Ketones 1+ H Urine Blood Trace Urine Nitrite Negative Urine Bilirubin Negative Urine Urobilinogen 0.2 Ur Leukocyte Esterase Negative Urine WBC (Auto) 0 Urine RBC (Auto) 3 Urine Casts (Auto) 0 U Epithel Cells (Auto) 0.2 Urine Bacteria (Auto) 1.4 05/29/19 06:15 WBC RBC Hgb Hct MCV MCH MCHC RDW Plt Count MPV Sodium 134 L Potassium 3.6 Chloride 97 L Carbon Dioxide 29 Anion Gap 8 BUN 11.3 Creatinine 0.7 Est GFR (CKD-EPI)AfAm 127.53 Est GFR (CKD-EPI)NonAf 110.04 POC Glucometer Random Glucose 105 Calcium 8.9 Magnesium 2.3 Urine Color Urine Appearance Urine pH Ur Specific [place] Urine Protein Urine Glucose (UA) Urine Ketones Urine Blood Urine Nitrite Urine Bilirubin Urine Urobilinogen Ur Leukocyte Esterase Urine WBC (Auto) Urine RBC (Auto) Urine Casts (Auto) U Epithel Cells (Auto) Urine Bacteria (Auto) Physical Exam: NAD. HEENT: surgical clean dressing on anterior and posterior neck with neck edema especially on R side. oropharynx with slightly bruised mucosa. No edema in uvula CV: RRR, 2/6 SM At apex . Lungs: CATB Ext : No edema Neuro: strength 5/5 in upper and lower extremities proximally and distally, sensation to light touch nl. reflexes 2+ knee jerk, 1+ biceps. ASSESSMENT AND PLAN: 48 y/o man with h/o HTN, HLD and pre-diabetes, who presented for C spine sx 1- POD 3 after C4-5 corpectomies and instrumentation: - Dc IVF - pain management was discussed with patient. DC YOUNG ADULT LIBRARIAN and order PRN morphine and oxycodone and standing tylenol - bowel regimen , cont colace , add senna - advance diet 2- leukocytosis: no clear source yet. + blood cx in one set could be contaminant for m skin. - d/w ID - blood cx repeated and vanco started - follow CBC 3-H/o HTN: cont norvasc 3- Heart murmur: f/u with echo as out pt DVT PX: SCDs , heparin SQ Visit type - Emergency Visit Emergency Visit: Yes ED Registration Date: 05/26/19 Care time: The patient presented to the Emergency Department on the above date and was hospitalized for further evaluation of their emergent condition. - New Patient This patient is new to me today: No - Critical Care Critical Care patient: No
[2019-05-29] MEDS ORDERED: oxyCODONE HCL 5 MG TABLET PO PRN (13:59)
[2019-05-29] MEDS: oxyCODONE HCL 5 MG TABLET PO PRN ×2 (15:12→18:59)
[2019-05-29] MEDS: ACETAMINOPHEN 325 MG TABLET (FP) PO SCH ×3 (15:14→21:57)
[2019-05-29] MEDS: SENNOSIDES 8.6MG TABLET (FP) PO SCH (21:58)
[2019-05-29] MEDS: MORPHINE SULFATE 2 MG/ML VIAL IVPUSH PRN (22:07)
[2019-05-30] MEDS: oxyCODONE HCL 5 MG TABLET PO PRN ×5 (02:15→21:43)
[2019-05-30] MEDS: MORPHINE SULFATE 2 MG/ML VIAL IVPUSH PRN ×2 (04:38→11:39)
[2019-05-30] MEDS: DOCUSATE SODIUM 100 MG CAPSULE (FP) PO SCH ×4 (05:17→21:45)
[2019-05-30] MEDS: HEPARIN NA (PORCINE) 5,000 UNITS/ML 1ML VIAL SQ SCH ×4 (05:17→21:46)
[2019-05-30] MEDS: INSULIN SLIDING SCALE (NOVOLOG) 1 VIAL SQ SCH ×3 (06:32→17:43)
--- NOTE | 2019-05-30 07:46 | PN ---
Progress Note (short form) - Note Progress Note: NEUROSURGERY POD #4 Alert. Found patient this morning ambulating in his room unassisted. Continues to wear his c-collar as instructed. C/o incisional tenderness although the pain has decreased significantly. His SOAP PRESS FEEDER was stopped yesterday and switched over to PO pain management...w/ adequate control. Prior to surgery states he had UE weakness/numbness which by his own admission has now completely resolved. Leukocytosis with unkown source. Denies n/v/f/c, CP, palpitations, SOB, GALLARDO, cough, GONZALEZ or photophobia. Last Vital Signs Temp Pulse Resp BP Pulse Ox 98.1 F 76 18 139/94 95 05/30/19 05:00 05/30/19 05:00 05/29/19 22:12 05/30/19 05:00 05/29/19 21:00 WBC TREND 05/27/19 05/28/19 05/29/19 10:45 05:30 06:15 WBC 21.9 H 22.0 H 21.0 H Microbiology 05/28/19 12:20 Blood - Peripheral Venous Blood Culture - Preliminary NO GROWTH OBTAINED AFTER 24 HOURS, INCUBATION TO CONT FOR 4 DAYS. 05/28/19 12:07 Blood - Peripheral Venous Blood Culture - Preliminary Pending Organism PE Gen: A&O. NAD Pulm: CTA bilat in all guajardo Cor: RRR Neck: C-collar. Ant & posterior (dressings taken down on rounds) --> clean. No evidence of infection. No erythema or drainage. Neuro: 5/5 disk recordist strength b/l UE. b/l LE dorsi/plantar flexion/extension LE: compartments soft, supple and non-tender with +DP pulses. SCDs bilat. Problem List - Problems (1) Cervical spondylosis with radiculopathy Assessment/Plan: 48 yo male s/p C4/5 Corpectomies; Protestant of Lordosis; Reconstruction w/ Peek Cage & Anterior plating. C3-C6 Laminectomies, Protestant of Lordosis w/ Lateral Mass Instrumentation. Developed leukocytosis unkown source. Afebrile. Non-toxic appearing. No evidence of surgical wound infection. f/u repeat Cultures f/u ID Dressing changed on rounds Cont to wear you C-collar 23/24 hrs/day (may remove while eating and or bathing) Pain management as ordered. No further Neurosurgery intervention. As per Dr. Gay, patient cleared for DC home only after all are in agreement that his elevated WBC is resolving without apparent infection. Code(s): M47.22 - OTHER SPONDYLOSIS WITH RADICULOPATHY, CERVICAL REGION (2) HTN (hypertension) Code(s): I10 - ESSENTIAL (PRIMARY) HYPERTENSION (3) HLD (hyperlipidemia) Code(s): E78.5 - HYPERLIPIDEMIA, UNSPECIFIED (4) Pre-diabetes Assessment/Plan: Tight glycemic control Code(s): R73.03 - PREDIABETES
--- NOTE | 2019-05-30 08:35 | SURG ---
Surgery Finished Cigar Maker Note Finished Cigar Maker: Lupillo Dewey PA-C Date of Service: 05/26/19 Diagnosis: Cervical Spondylotic Myelopathy with Kyphosis Procedure: 1. Cranial Tong Application 2. Fluroscopy 3. Local Autograft 4. Posterior Segmental Instrumentation C3-C6 (technically challenging) 5. C3 Laminectomy 6. C4 Laminectomy 7. C6 Laminectomy 8 C6 Laminectomy 9. C3/4 Posterior/Lateral Arthrodesis 10. C4/5 Posterior/Lateral Arthrodesis 11. C5/6 Posterior/Lateral Arthrodesis 12. Bilateral soft tisse advancement flaps (50 cm2) 13. Denominational of Lordosis I was present for the entirety of the operative procedure. For further detail, please refer to operative report. Visit type - Case Type Case Type: Scheduled
[2019-05-30] MEDS: FOLIC ACID 1 MG TABLET (FP) PO SCH (10:59)
[2019-05-30] MEDS: ACETAMINOPHEN 325 MG TABLET (FP) PO SCH ×4 (10:59→21:42)
[2019-05-30] MEDS: amLODIPine BESYLATE 10 MG TABLET (FP) PO SCH (10:59)
[2019-05-30] MEDS: NICOTINE 21 MG/24 HOURS TOPICAL PATCH TD SCH (11:00)
--- NOTE | 2019-05-30 11:22 | PN ---
Progress Note (short form) - Note Progress Note: alert using incentive spirometry clinically looks better opening his mouth more easily remains constipated NO BM since surgery dressings intact Vital Signs Period Temp Pulse Resp BP Sys/Mistry Pulse Ox Last 24 Hr 98 F-99.9 F 76-86 18-20 139-155/90-94 95 cor-rrr lungs clear abd soft,nt ext no edema dressings intact less neck swellling CBC, BMP 05/29/19 06:15 05/29/19 06:15 Microbiology 05/28/19 12:07 Blood - Peripheral Venous Blood Culture - Preliminary Gram Positive Bacillus 05/29/19 09:05 Blood - Peripheral Venous Blood Culture - Preliminary NO GROWTH OBTAINED AFTER 24 HOURS, INCUBATION TO CONTINUE FOR 4 DAYS. 05/29/19 09:10 Blood - Peripheral Venous Blood Culture - Preliminary NO GROWTH OBTAINED AFTER 24 HOURS, INCUBATION TO CONTINUE FOR 4 DAYS. 05/28/19 12:20 Blood - Peripheral Venous Blood Culture - Preliminary NO GROWTH OBTAINED AFTER 24 HOURS, INCUBATION TO CONTINUE FOR 4 DAYS. a/p low grade fevers leukocytosis +blood culture- blood culture is consistent with contaminant, repeat blood cultures (prior to antiibotics) negative will d/c vancomycin repeat cbc treat constipation POD #4 s/p C4/5 Corpectomies; Hoahaoism of Lordosis; Reconstruction w/ Peek Cage & Anterior plating. C3-C6 Laminectomies, Hoahaoism of Lordosis w/ Lateral Mass Instrumentation surgical f/u noted HTN NIDDM
[2019-05-30] MEDS: VANCOMYCIN 1 GRAM (PRE-DOCKED) 1,000 MG/250 ML BAG IVPB SCH (11:38)
[2019-05-30 13:23] LABS: BASO % 0.9 % (0-2.0); EOS % 1.1 % (0-4.5); HEMATOCRIT 37.5 % (35.4-49); HEMOGLOBIN 12.6 GM/dL (11.7-16.9); LYMPH % 21.2 % (8-40); MCH 31.1 pg (25.7-33.7); MCHC 33.5 g/dl (32.0-35.9); MEAN CELL VOLUME 92.8 fl (80-96); MEAN PLT VOLUME 7.5 fl (7.5-11.1); MONO % 9.1 % (3.8-10.2); NEUT % 67.7 % (42.8-82.8); PLATELET COUNT 387 K/MM3 (134-434); RBC 4.05 M/mm3 (4.00-5.60); WHITE BLOOD COUNT 15.5 K/mm3 (4.0-10.0)
--- NOTE | 2019-05-30 14:22 | PN ---
Physical Exam: SUBJECTIVE: Patient seen and examined at the bedside, appears well states he still not having BMs but passing gas and tolerating his diet. No longer febrile. OBJECTIVE: Vital Signs Period Temp Pulse Resp BP Sys/Mistry Pulse Ox Last 24 Hr 98 F-98.2 F 76-81 18-20 139-151/90-94 95 GENERAL: The patient is awake, alert, and fully oriented, in no acute distress. HEAD: Normal with no signs of trauma. EYES: PERRL, extraocular movements intact, sclera anicteric, conjunctiva clear. No ptosis. ENT: Ears normal, nares patent, oropharynx clear without exudates, moist mucous membranes. NECK: C-collar in place; ant/post dressings c/d/i slight edema in neck LUNGS: Breath sounds equal, clear to auscultation bilaterally, no wheezes, no crackles, no accessory muscle use. HEART: Regular rate and rhythm, S1, S2 without murmur, rub or gallop. ABDOMEN: Soft, nontender, nondistended, normoactive bowel sounds, no guarding, no rebound, no hepatosplenomegaly, no masses. EXTREMITIES: 2+ pulses, warm, well-perfused, no edema. NEUROLOGICAL: Cranial nerves II through XII grossly intact.B/L UE 5/5 strength sensation intact throughout; B/L LE 5/5 strength sensation intact throughout PSYCH: Normal mood, normal affect. SKIN: Warm, dry, normal turgor, no rashes or lesions noted Laboratory Results - last 24 hr 05/29/19 05/30/19 05/30/19 21:56 06:31 11:27 WBC RBC Hgb Hct MCV MCH MCHC RDW Plt Count MPV Absolute Neuts (auto) Neutrophils % Lymphocytes % Monocytes % Eosinophils % Basophils % Nucleated RBC % POC Glucometer 152 118 117 05/30/19 12:29 WBC 15.5 H RBC 4.05 Hgb 12.6 Hct 37.5 MCV 92.8 MCH 31.1 MCHC 33.5 RDW 14.0 Plt Count 387 MPV 7.5 Absolute Neuts (auto) 10.5 H Neutrophils % 67.7 Lymphocytes % 21.2 D Monocytes % 9.1 Eosinophils % 1.1 D Basophils % 0.9 Nucleated RBC % 0 POC Glucometer Active Medications Generic Name Dose Route Start Last Admin Trade Name Freq PRN Reason Stop Dose Admin Acetaminophen 650 mg 05/29/19 14:00 05/30/19 10:59 Tylenol - PO 650 mg QID [facility] Administration Amlodipine Besylate 10 mg 05/27/19 10:00 05/30/19 10:59 Norvasc - PO 10 mg DAILY [facility] Administration Benzocaine/Menthol 1 each 05/28/19 11:26 05/29/19 09:25 Cepacol Lozenge - MM 1 each PRN PRN Administration SORE THROAT Diphenhydramine HCl 25 mg 05/26/19 13:08 Benadryl - PO Q6H PRN FOR ITCHING Docusate Sodium 100 mg 05/26/19 14:00 05/30/19 05:17 Colace - PO Not Given TID [facility] Folic Acid 1 mg 05/27/19 10:00 05/30/19 10:59 Folic Acid - PO 1 mg DAILY [facility] Administration Heparin Sodium (Porcine) 5,000 unit 05/27/19 14:00 05/30/19 05:17 Heparin - SQ Not Given TID [facility] Insulin Aspart 1 vial 05/27/19 07:00 05/30/19 12:33 Novolog Vial Sliding Scale - SQ Not Given [facility] Protocol Morphine Sulfate 4 mg 05/29/19 13:58 05/30/19 11:39 Morphine Sulfate IVPUSH 4 mg Q3H PRN Administration PAIN LEVEL 7 - 10 Nicotine 21 mg 05/27/19 10:00 05/30/19 11:00 Nicoderm Patch - TD Not Given DAILY [facility] Oxycodone HCl 5 mg 05/29/19 13:59 Roxicodone - PO Q4H PRN PAIN LEVEL 1 - 3 Oxycodone HCl 10 mg 05/29/19 13:59 05/30/19 07:48 Roxicodone - PO 10 mg Q4H PRN Administration PAIN LEVEL 4 - 6 Senna 2 tab 05/29/19 22:00 05/29/19 21:58 Senna - PO Not Given [facility] ASSESSMENT/PLAN: Patient is a 48 year old male with past medical history of HTN, HLD and pre- diabetes, presented due to persistent pain and weakness of lower back, as well as dorsal surface of RUE for about 3 months that occurred suddenly after a fall. #Cervical spondylosis -POD 4: C4/5 Corpectomies; Anabaptism of Lordosis; Reconstruction w/ Peek Cage & Anterior plating. C3-C6 Laminectomies, Anabaptism of Lordosis w/ Lateral Mass Instrumentation - dc IV pain meds - continue PO oxy for pain - add miralax for constipation - continue senna and colace -incentive spirometer # Leukocytosis with positive blood cx, most likely 2/2 contamination ( only 1 tube) -WBC improving -f/u with ID, dc antibiotics if cultures remain negative #HTN -Continue Amlodipine 10mg daily # Heart murmur - f/u with echo as out pt #Pre-DM -Insulin sliding scale -BGM ACHS -Hold Metformin #ppx: -heparin sq dvt ppx #FEN -PO fluids -BMP monitoring -regular diet Dispo: likely to be discharged tomorrow Visit type - Emergency Visit Emergency Visit: No - New Patient This patient is new to me today: No - Critical Care Critical Care patient: No - Discharge Referral Referred to [facility] Med P.C.: No ATTENDING PHYSICIAN STATEMENT I saw and evaluated the patient. I reviewed the resident's note and discussed the case with the resident. I agree with the resident's findings and plan as documented. SUBJECTIVE: OBJECTIVE: ASSESSMENT AND PLAN:
--- NOTE | 2019-05-30 15:19 | PN ---
Progress Note (short form) - Note Progress Note: 48M POD1 s/p C 3-6 corepectomy under GA-ETT with dilaudid HISTOLOGY SPECIALIST for post pain. Pt doing well, off of HISTOLOGY SPECIALIST, taking orals well. Pain controlled. AVSS. Continue current regimen.
[2019-05-30] MEDS ORDERED: POLYETHYLENE GLYCOL 3350 119 GM BTL PO ONE (17:17)
[2019-05-30] MEDS ORDERED: POLYETHYLENE GLYCOL 3350 119 GM BTL PO PRN (17:17)
--- NOTE | 2019-05-30 17:21 | PN ---
Teaching Attending Note Name of Resident: Florida Chambers ATTENDING PHYSICIAN STATEMENT I saw and evaluated the patient. I reviewed the resident's note and discussed the case with the resident. I agree with the resident's findings and plan as documented. SUBJECTIVE: No fever or chills. No GONZALEZ , pain in neck is better. No fever . no BM OBJECTIVE: NAD. HEENT: surgical clean dressing on anterior and posterior neck with neck edema especially on R side ( improved). oropharynx with slightly bruised mucosa. No edema in uvula CV: RRR, 2/6 SM At apex . Lungs: CATB Ext : No edema Neuro: strength 5/5 in upper and lower extremities proximally and distally, sensation to light touch nl. reflexes 2+ knee jerk, 1+ biceps. ASSESSMENT AND PLAN: 48 y/o man with h/o HTN, HLD and pre-diabetes, who presented for C spine sx 1- POD 3 after C4-5 corpectomies and instrumentation: - dc IV morphine - cont po oxy at 2 doses - add miralax - cont senna and colace 2- Leukocytosis: with + blood cx representing contamination ( most likely) WBC improved of vanco 3-H/o HTN: cont norvasc 3- Heart murmur: f/u with echo as out pt DVT PX: SCDs , heparin SQ will dc home tomorrow
[2019-05-30] MEDS: SENNOSIDES 8.6MG TABLET (FP) PO SCH (21:46)
[2019-05-31] MEDS: DOCUSATE SODIUM 100 MG CAPSULE (FP) PO SCH ×2 (06:43→16:20)
[2019-05-31] MEDS: HEPARIN NA (PORCINE) 5,000 UNITS/ML 1ML VIAL SQ SCH ×2 (06:51→13:57)
[2019-05-31] MEDS: BENZOCAINE/MENTH/CETYLPYRD CL 1 EACH LOZENGE MM PRN (06:52)
[2019-05-31 07:58] LABS: BASO % 0.9 % (0-2.0); EOS % 1.4 % (0-4.5); HEMATOCRIT 37.6 % (35.4-49); HEMOGLOBIN 12.9 GM/dL (11.7-16.9); LYMPH % 26.5 % (8-40); MCH 31.7 pg (25.7-33.7); MCHC 34.2 g/dl (32.0-35.9); MEAN CELL VOLUME 92.7 fl (80-96); MEAN PLT VOLUME 7.4 fl (7.5-11.1); MONO % 8.4 % (3.8-10.2); NEUT % 62.8 % (42.8-82.8); PLATELET COUNT 438 K/MM3 (134-434); RBC 4.06 M/mm3 (4.00-5.60); WHITE BLOOD COUNT 13.7 K/mm3 (4.0-10.0)
[2019-05-31 08:05] LABS: BLOOD UREA NITROGEN 10.2 mg/dL (7-18); CALCIUM 9.1 mg/dL (8.5-10.1); CREATININE 0.7 mg/dL (0.55-1.3); POTASSIUM 3.8 mmol/L (3.5-5.1)
--- NOTE | 2019-05-31 09:03 | PN ---
Progress Note (short form) - Note Progress Note: Patient s/p C4/5 Corpectomies; Hindu of Lordosis; Reconstruction w/ Peek Cage & Anterior plating. C3-C6 Laminectomies, Hindu of Lordosis w/ Lateral Mass Instrumentation on 05/26. Remains in house to elevated wbc. This AM ambulating halls without issue. Reports feeling well other than lack of a BM x 4 days. States he attempted to have a BM this AM but was unsuccessful. Denies motor/sensory deficits. Reports improvement in R finger numbness. Miralax changed to scheduled daily. WBC down trending 15k today from 21k yesterday. Pt afebrile. Denies any sxs out dysuria, cough/congestion. BCX neg x1 (initial + thought to be contaminant). Discharge/care per medical team Pt should f/u with Dr Mann in the office upon discharge
[2019-05-31] MEDS: oxyCODONE HCL 5 MG TABLET PO PRN ×2 (09:11→16:22)
[2019-05-31] MEDS: ACETAMINOPHEN 325 MG TABLET (FP) PO SCH ×2 (10:41→15:48)
[2019-05-31] MEDS: NICOTINE 21 MG/24 HOURS TOPICAL PATCH TD SCH (10:42)
[2019-05-31] MEDS: amLODIPine BESYLATE 10 MG TABLET (FP) PO SCH (10:42)
[2019-05-31] MEDS: FOLIC ACID 1 MG TABLET (FP) PO SCH (10:42)
--- NOTE | 2019-05-31 13:57 | PN ---
Teaching Attending Note Name of Resident: Florida Chambers ATTENDING PHYSICIAN STATEMENT I saw and evaluated the patient. I reviewed the resident's note and discussed the case with the resident. I agree with the resident's findings and plan as documented. SUBJECTIVE: No fever or chills. No GONZALEZ. neck pain is tolerable. no weakness, or tingling , or weakness. OBJECTIVE: NAD. HEENT: surgical clean dressing on anterior and posterior neck with decreased neck edema especially . oropharynx with slightly bruised mucosa. No edema in uvula CV: RRR, 2/6 SM At apex. Lungs: CATB Ext: No edema Neuro: strength 5/5 in upper and lower extremities proximally and distally, sensation to light touch nl. reflexes 2+ knee jerk, 1+ biceps. ASSESSMENT AND PLAN: 48 y/o man with h/o HTN, HLD and pre-diabetes, who presented for C spine sx 1- POD 4 after C4-5 corpectomies and instrumentation: - wound care instructions are given to patient verbally and in c paper work - cont oxy and bowel regimen after dc - f/u with sx in 1 week 2- Leukocytosis: repeat blood c still neg x 48 hr leikocytosis improved. off Abx . d 3-H/o HTN: cont norvasc 3- Heart murmur: f/u with echo as out pt dc home today
--- NOTE | 2019-05-31 13:59 | DS ---
"Physical Exam: SUBJECTIVE: Patient seen and examined OBJECTIVE: Vital Signs Period Temp Pulse Resp BP Sys/Mistry Pulse Ox Last 24 Hr 98.2 F-99.5 F 69-86 18-20 148-163/78-96 PHYSICAL EXAM GENERAL: The patient is awake, alert, and fully oriented, in no acute distress. HEAD: Normal with no signs of trauma. EYES: PERRL, extraocular movements intact, sclera anicteric, conjunctiva clear. ENT: Ears normal, nares patent, oropharynx clear without exudates, moist mucous membranes. NECK: Trachea midline, full range of motion, supple. LUNGS: Breath sounds equal, clear to auscultation bilaterally, no wheezes, no crackles, no accessory muscle use. HEART: Regular rate and rhythm, S1, S2 without murmur, rub or gallop. ABDOMEN: Soft, nontender, nondistended, normoactive bowel sounds, no guarding, no rebound, no hepatosplenomegaly, no masses. EXTREMITIES: 2+ pulses, warm, well-perfused, no edema. NEUROLOGICAL: Cranial nerves II through XII grossly intact. Normal speech, gait not observed. PSYCH: Normal mood, normal affect. SKIN: Warm, dry, normal turgor, no rashes or lesions noted. LABS Laboratory Results - last 24 hr 05/31/19 05/31/19 05/31/19 06:10 06:10 06:39 WBC 13.7 H RBC 4.06 Hgb 12.9 Hct 37.6 MCV 92.7 MCH 31.7 MCHC 34.2 RDW 14.0 Plt Count 438 H MPV 7.4 L Absolute Neuts (auto) 8.6 H Neutrophils % 62.8 Lymphocytes % 26.5 D Monocytes % 8.4 Eosinophils % 1.4 Basophils % 0.9 Nucleated RBC % 0 Sodium 136 Potassium 3.8 Chloride 100 Carbon Dioxide 28 Anion Gap 8 BUN 10.2 Creatinine 0.7 Est GFR (CKD-EPI)AfAm 127.53 Est GFR (CKD-EPI)NonAf 110.04 POC Glucometer 106 Random Glucose 103 Calcium 9.1 HOSPITAL COURSE: Date of Admission:05/26/19 Date of Discharge: 05/31/19 Discharge Summary Reason For Visit: CERVICAL SPONDYLOSIS AND KYPHOSIS Current Active Problems Cervical spondylosis with radiculopathy (Acute) HLD (hyperlipidemia) (Chronic) HTN (hypertension) (Chronic) Pre-diabetes (Chronic) Condition: Improved - Instructions Diet, Activity, Other Instructions: You were in the hospital recovering from a neck surgery you had with Dr. Gay, your surgery was uncomplicated and you should follow Dr. Gay's discharge instructions below. You were recovering well from surgery however on post op day 3 it was noted that your white blood cells were higher than expected and you had a low fever. Infection was ruled out despite elevated white count . you were stable to discharge home with plans to follow up with Dr. Gay and Dr. Kennedy, your primary care doctor. Please keep the clear dressing covering the incision sites on your neck in place until you see Dr. Gay at your follow up appointment. If you need to shower, please keep the area dry by covering in saran wrap and then patting dry after the shower. DO NOT submerge the incision site in water or apply any ointments or cream. keep collar at all times ( 30/03).. Post Operative Instructions Physical Activity Resume your normal everyday activity as tolerated. No heavy lifting or exercise until seen by your surgeon. You may walk unlimited amounts and climb stairs. You may resume driving the car when you feel safe and comfortable behind the wheel and you are no longer wearing your brace. Do not operate a vehicle while taking narcotic medication.( oxycodone ) Brace You had neck surgery, wear surgical collar 23 hr/day. Remove to shower only. Wound Care Keep your incision clean, dry and covered at all times. Apply an occlusive dressing (Saran wrap or Tegaderm) when showering to avoid getting your incision wet. Do not submerge incision or apply ointments or creams. The darling will be removed in the office in 10-14 days post-op. Diet There are no dietary restrictions. Eat healthy, high-fiber foods. Drink 6-8 glasses of liquid each day. This will assist in keeping your bowels regular. Pain Management You may take Tylenol or acetaminophen. Any pain prescription medication ordered should be taken as prescribed for moderate to severe pain. Avoid any ibuprofen (Motrin, Advil, Aleve, Toradol, etc) for 3 months unless otherwise discussed with your surgeon. Call Dr Angeles for any of the following: Severe pain not relieved by medication Fever of 101 or higher Excessive bleeding or drainage on dressing Inability to urinate Any chest pain or shortness of breath, seek Emergency Care. Call the office to confirm a post-operative appointment for 2-3 weeks post-op Sky Gay MD [facility] [address] [place] [address] [facility]: This report was requested by: Lupillo Dewey | Reference #: [id number] Please continue your home medicines as prescribed with the following changes - ADD: Oxycodone, 5mg three times ( every 8 hours ) per day as needed for 3 days - ADD: Tylenol/ acetaminophen for pain as needed. do not use more than 4 grams of tylenol on any given day( 24 hour period ) - ADD: colace, senna, and miralax as needed for constipation until you are passing stool PLEASE AVOID IBUPROFEN or other NSAIDs Please follow up with the following doctors within 1 week of discharge from the hospital: - Dr. Angeles, your neurosurgeon - Dr. Kennedy, your primary are doctor you need an echo for your heart murmur . please ask Dr. Kennedy to order it Referrals: Sky Gay MD, [facility] [Staff Physician] - 1 Week Diego Kennedy MD [Staff Physician] - 1 Week Disposition: HOME - Home Medications Comprehensive Discharge Medication List: Ambulatory Orders Metformin HCl [Glucophage] 500 mg PO BID 03/28/19 Atorvastatin Ca [Lipitor] 40 mg PO HS 05/30/19 Diazepam [Valium] 2 mg PO TID PRN #24 tablet MDD 3 05/30/19 Docusate Sodium [Colace] 100 mg PO TID #24 capsule 05/30/19 oxyCODONE HCL [Roxicodone -] 5 mg PO Q4H PRN #30 tablet MDD 6 05/30/19 Acetaminophen [Tylenol] 650 mg PO Q6H #30 tablet 05/31/19 Polyethylene Glycol 3350 [Miralax 119 gm Btl -] 17 gm PO DAILY bottle 05/31/19 Sennosides [Senna -] 2 tab PO HS tablet 05/31/19 This patient is new to me today: No Emergency Visit: No Critical Care patient: No - Discharge Referral Referred to [facility] Med P.C.: No ATTENDING PHYSICIAN STATEMENT I saw and evaluated the patient. I reviewed the resident's note and discussed the case with the resident. I agree with the resident's findings and plan as documented. SUBJECTIVE: OBJECTIVE: ASSESSMENT AND PLAN:"
[2019-05-31 15:49] VITALS: BP 157/84; PULSE 79; TEMP 99.3
[2019-06-01] MEDS ORDERED: POLYETHYLENE GLYCOL 3350 119 GM BTL PO SCH (10:00)
== END 2019-05-31 16:50 | disposition home or self-care (01) | DRG 454 ==
LOC: JSAMEDAYSX 06:21 → J8W 16:54
PROVIDERS: ADMIT Internal Medicine; ATTEND Internal Medicine
PROC: 0RG20A0 Fusion of 2 or more Cervical Vertebral Joints with Interbody Fusion Device, Anterior Approach, Anterior Column, Open Approach (ICD-10-PCS; 2019-05-26)
PROC: 0RG2071 Fusion of 2 or more Cervical Vertebral Joints with Autologous Tissue Substitute, Posterior Approach, Posterior Column, Open Approach (ICD-10-PCS; 2019-05-26)
PROC: 00NW0ZZ Release Cervical Spinal Cord, Open Approach (ICD-10-PCS; 2019-05-26)
PROC: 01N10ZZ Release Cervical Nerve, Open Approach (ICD-10-PCS; 2019-05-26)
PROC: 0JX70ZZ Transfer Back Subcutaneous Tissue and Fascia, Open Approach (ICD-10-PCS; 2019-05-26)
PROC: B01BZZZ Fluoroscopy of Spinal Cord (ICD-10-PCS; 2019-05-26)
PROC: 0RB30ZZ Excision of Cervical Vertebral Disc, Open Approach (ICD-10-PCS; principal; 2019-05-26 08:00)
DX: M50.01 Cervical disc disorder with myelopathy, high cervical region (principal); M47.12 Other spondylosis with myelopathy, cervical region; M40.292 Other kyphosis, cervical region; M47.22 Other spondylosis with radiculopathy, cervical region; I10 Essential (primary) hypertension; E78.5 Hyperlipidemia, unspecified; R73.03 Prediabetes; R01.1 Cardiac murmur, unspecified; D72.828 Other elevated white blood cell count; M40.40 Postural lordosis, site unspecified
CPT/HCPCS: 36415; 71045-TC-FY; 72125-TC; 76000-TC-FY; 80048; 81003; 82962; 83735; 84100; 85025; 85027; 86850; 86900; 86901; 87040; 94010; 94760; 97116-GP; 97161-GP; J0131; J1644